=== PATIENT | female | born 1955 | race Caucasian/White ===

== ENCOUNTER 2017-06-17 08:53 | Day surgery (SDC) | payer OTHER ==
[2017-06-13 10:04] VITALS: BMI 34.7
[~2017-06-17 08:53] MED LIST: LACTATED RINGERS 1,000 ML IV SCH; LIDOCAINE 1% 20 ML VIAL (10MG/ML) FOR IV START INTRADERMA PRN
[2017-06-17 09:34] VITALS: RESP 16; TEMP 97.9
[2017-06-17 09:42] LABS: Glucose,Whole Blood 91 mg/dL (75-99)
[2017-06-17] MEDS ORDERED: PROPOFOL 10 MG/ML 20 ML VIAL IV ONE (10:20)
[2017-06-17 10:45] VITALS: BP 121/67; PULSE 83
--- NOTE | 2017-06-17 10:47 | P.PCN ---
Date of Procedure: 06/17/17 Preoperative Diagnosis: Postoperative Diagnosis: Procedure(s) Performed: Procedure: Esophagogastroduodenoscopy and biopsy. Preoperative diagnosis: Epigastric pain persistent despite therapy. Postoperative diagnosis: 1. Small sliding hiatal hernia with low-grade distal esophagitis. 2. Mild gastritis and duodenitis. 3. Biopsies obtained from the duodenum, antrum and esophagus. Preparation and sedation: Was provided by anesthesia. Brief clinical history: The patient is a 62-year-old female who I have evaluated in the office last month in regards to epigastric pain for the last 2 months or so. Prilosec does not always help. She gets the pain after eating a bite or 2. Fatty food could be a trigger. Nausea sets in during the day but no vomiting or weight loss. Her last colonoscopy with me was in 2015. No recent ultrasound or EGD. Procedure: With the patient on her left lateral decubitus position and after informed consent and adequate sedation, I passed the Olympus-GIF 160 video upper endoscope through the cricopharyngeus down the esophagus. GE junction was around 36 cm from the incisors and there was a small sliding hiatal hernia. The distal esophagus showed a linear erosion or 2 consistent with LA grade A distal esophagitis. There were no strictures or Moulton's esophagus. The endoscope was then passed into the stomach which was insufflated with air and inspected in detail including the retroflex view in the cardia. There was some mottling and erythema in the antrum but no ulcers or erosions. Pyloric channel did not show any ulcers. Duodenal bulb, post bulbar area and descending duodenum showed minimal erythema. I obtained biopsies from the duodenum, antrum and esophagus then the endoscope was withdrawn. The patient tolerated the procedure well. Plan: The patient was reassured. Will await biopsy results and will look for the ultrasound of the abdomen results and make additional recommendations. I will keep you updated on her progress. Implants: Indications for Procedure: Operative Findings: Description of Procedure:
[2017-06-17 11:00] LABS: Glucose,Whole Blood 88 mg/dL (75-99)
== END 2017-06-17 11:30 | disposition home or self-care (01) ==
LOC: ORWHC2ENDO 08:53
DX: K20.9 Esophagitis, unspecified (principal); K44.9 Diaphragmatic hernia without obstruction or gangrene; K29.70 Gastritis, unspecified, without bleeding; K29.80 Duodenitis without bleeding; I10 Essential (primary) hypertension; Z79.1 Long term (current) use of non-steroidal anti-inflammatories (NSAID); Z79.82 Long term (current) use of aspirin; Z79.899 Other long term (current) drug therapy
CPT/HCPCS: 88305; 88342; 43239; J2704

== ENCOUNTER → 2017-09-05 | Outpatient (CLI) | payer OTHER | END | disposition home or self-care (01) | LOC: LABPAT 17:31 | PROVIDERS: ATTEND Orthopaedic Surgery | DX: Z01.812 Encounter for preprocedural laboratory examination (principal) | CPT/HCPCS: 87070 ==

== ENCOUNTER → 2019-05-07 | Outpatient (CLI) | payer OTHER ==
[2019-05-07 17:14] LABS: Albumin 4.5 g/dL (3.80-4.90); Albumin/Globulin Ratio 2.5 (1.60-3.17); Anion Gap 4.8 mmol/L (4.00-12.00); Calcium 9.8 mg/dL (8.7-10.3); Carbon Dioxide 34.2 mmol/L (21.6-31.8); Globulin 1.8 g/dL (1.6-3.3); Total Bilirubin 0.8 mg/dL (0.2-1.2); Total Protein 6.3 g/dL (6.2-8.2)
[2019-05-07 19:25] LABS: Hemoglobin A1C 5.5 % (4.0-6.0)
== END | disposition home or self-care (01) ==
LOC: LABWHC1 10:57
PROVIDERS: ATTEND Internal Medicine Endocrinology, Diabetes & Metabolism
DX: E87.6 Hypokalemia (principal); I15.2 Hypertension secondary to endocrine disorders; E16.2 Hypoglycemia, unspecified
CPT/HCPCS: 36415; 80053; 82024; 82088; 82533; 83036; 84244

== ENCOUNTER → 2019-06-05 | Outpatient (CLI) | payer OTHER ==
--- NOTE | 2019-06-05 09:04 | CT ---
EXAMINATION TYPE: CT adrenal glands wo/w con DATE OF EXAM: 06/05/2019 COMPARISON: CT chest dated 1111 HISTORY: Hypertension and abnormal lab values CT DLP: 1475 mGycm CONTRAST: CT scan of the abdomen is performed and without and with IV Contrast, patient injected with 100 mL o f Isovue 370. FINDINGS: LUNG BASES-: No visible nodule. No infiltrate. LIVER/GB: As an exophytic hepatic lesion which impresses upon the lateral arm of the right adrenal gl and. This lesion is not felt to arise from the adrenal gland and measures 4.2 x 2.9 cm and demonstrat es complete fill in on delayed imaging. This lesion is felt to reflect a hemangioma. Additional heman giomas noted within the periphery of the right hepatic lobe posterior segment which measures 1.4 cm. Gallbladder is unremarkable. PANCREAS: No inflammation. No distinct mass. SPLEEN: No splenic enlargement. No lesion seen. ADRENALS: No nodule. No thickening. KIDNEYS/BLADDER: No hydronephrosis. No nephrolithiasis. No distinct renal mass. Urinary bladder g rossly unremarkable. BOWEL: Normal appendix. Normal bowel caliber. No inflammation. LYMPH NODES: No greater than 1cm abdominal or pelvic lymph nodes are appreciated. AORTA: No significant abnormality. OSSEOUS STRUCTURES: No significant abnormality is seen. OTHER: No significant additional abnormality is seen. IMPRESSION: 1. Exophytic hemangioma arising from the liver directly adjacent to the intrahepatic portion of the I VC. There is mass effect upon the lateral limb of the right adrenal gland. Additional hepatic hemangi jose enrique noted.
== END | disposition home or self-care (01) ==
LOC: RADCTMAIN 06:20
PROVIDERS: ATTEND Internal Medicine Endocrinology, Diabetes & Metabolism
DX: D18.09 Hemangioma of other sites (principal); E27.8 Other specified disorders of adrenal gland; E26.09 Other primary hyperaldosteronism
CPT/HCPCS: 74170; Q9967

== ENCOUNTER → 2019-06-09 | Outpatient (CLI) | payer OTHER ==
[2019-06-09 17:47] LABS: African American GFR (CKD) 91.6 (60.0-200.0); Albumin 4.5 g/dL (3.80-4.90); Albumin/Globulin Ratio 2.5 (1.60-3.17); Anion Gap 10.8 mmol/L (4.00-12.00); BUN/Creat Ratio 23.75 Ratio (12.00-20.00); Calcium 9.9 mg/dL (8.7-10.3); Carbon Dioxide 22.2 mmol/L (21.6-31.8); Globulin 1.8 g/dL (1.6-3.3); Potassium 4.4 mmol/L (3.5-5.5); Total Bilirubin 0.8 mg/dL (0.3-1.2); Total Protein 6.3 g/dL (6.2-8.2)
== END | disposition home or self-care (01) ==
LOC: LABWHC1 10:24
PROVIDERS: ATTEND Internal Medicine Endocrinology, Diabetes & Metabolism
DX: E26.09 Other primary hyperaldosteronism (principal)
CPT/HCPCS: 36415; 80053

== ENCOUNTER → 2019-06-20 | Outpatient (CLI) | payer OTHER ==
[2019-06-20 19:25] LABS: African American GFR (CKD) 79.4 (60.0-200.0); Albumin 4.2 g/dL (3.80-4.90); Albumin/Globulin Ratio 2.1 (1.60-3.17); Anion Gap 11.2 mmol/L (4.00-12.00); BUN/Creat Ratio 24.44 Ratio (12.00-20.00); Calcium 9.6 mg/dL (8.7-10.3); Carbon Dioxide 22.8 mmol/L (21.6-31.8); Potassium 4.1 mmol/L (3.5-5.5); Total Bilirubin 0.8 mg/dL (0.3-1.2); Total Protein 6.2 g/dL (6.2-8.2)
== END | disposition home or self-care (01) ==
LOC: LABWHC1 11:23
PROVIDERS: ATTEND Internal Medicine Endocrinology, Diabetes & Metabolism
DX: E26.09 Other primary hyperaldosteronism (principal)
CPT/HCPCS: 36415; 80053

== ENCOUNTER → 2019-07-25 | Outpatient (CLI) | payer OTHER ==
[2019-07-25 18:12] LABS: African American GFR (CKD) 91.6 (60.0-200.0); Albumin 4.6 g/dL (3.80-4.90); Albumin/Globulin Ratio 2.42 (1.60-3.17); Anion Gap 8.2 mmol/L (4.00-12.00); BUN/Creat Ratio 26.25 Ratio (12.00-20.00); Calcium 9.6 mg/dL (8.7-10.3); Carbon Dioxide 28.8 mmol/L (21.6-31.8); Globulin 1.9 g/dL (1.6-3.3); Potassium 4.5 mmol/L (3.5-5.5); Total Bilirubin 0.9 mg/dL (0.2-1.2); Total Protein 6.5 g/dL (6.2-8.2)
== END | disposition home or self-care (01) ==
LOC: LABWHC1 11:31
PROVIDERS: ATTEND Internal Medicine Endocrinology, Diabetes & Metabolism
DX: E26.09 Other primary hyperaldosteronism (principal)
CPT/HCPCS: 36415; 80053

== ENCOUNTER → 2020-07-14 | Outpatient (CLI) | payer OTHER | END | disposition home or self-care (01) | LOC: LABPAT 12:01 | PROVIDERS: ATTEND Orthopaedic Surgery | DX: Z01.812 Encounter for preprocedural laboratory examination (principal) | CPT/HCPCS: 87070 ==

== ENCOUNTER 2020-08-16 06:45 | Day surgery (SDC) | payer OTHER ==
[2020-08-11 11:10] VITALS: BMI 33.6
--- NOTE | 2020-08-15 10:35 | HP ---
HISTORY AND PHYSICAL CHIEF COMPLAINT: Right knee pain. 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 It has worsened recently. She has tried previous medications along with injections with partial temporary relief. She notes pain limits her normal function and activities. She also notes pain and giving way. PAST MEDICAL HISTORY: Significant for hypertension, hemochromatosis, arthritis, heart disease. PAST SURGICAL HISTORY: Significant for carpal tunnel release, hysterectomy, left total knee arthroplasty, cardiac catheterization. CURRENT MEDICATIONS: Aspirin, ibuprofen, loratadine, metoprolol, spironolactone, famotidine. She has allergies to SULFA, AMOXICILLIN, MOBIC, NORVASC and IMDUR. FAMILY HISTORY: Significant for renal disease and heart disease along with diabetes. SOCIAL HISTORY: Negative for current tobacco or alcohol use. 16 POINT REVIEW OF SYSTEMS: Otherwise reviewed and is noncontributory. PHYSICAL EXAMINATION: On examination, the patient is approximately 5 foot 1, 180 pounds of endomorphic habitus. HEENT: Exam is nonfocal. NECK: Supple. She has painless passive motion of the right hip. Straight leg raise is negative. Active motion right knee -10 to 110 degrees of flexion. She has a moderate effusion. She is tender about the medial and lateral joint line. Collaterals are stable, Silvestre is negative, Krzysztof's is equivocal. She has genu valgum alignment. Her distal neurovascular appears intact in the right lower extremity. X-rays of the right knee obtained in the office show severe lateral compartment narrowing along with chondrocalcinosis of the medial and lateral compartments. IMPRESSION: 1. Right knee severe lateral compartment osteoarthrosis. 2. Pseudogout right knee. 3. History of hemochromatosis. RECOMMENDATIONS: I talked to the patient at length regarding her condition along with treatment options. At this point, she remains quite symptomatic and limited because of pain related to her osteoarthrosis despite conservative treatment. After thorough discussion, she opts to proceed with surgery. We will plan to proceed with right total knee arthroplasty. We will institute DVT prophylaxis postoperatively. Risks and benefits were discussed at length in layman's terms. MMODL / IJN: [id number] /
[~2020-08-16 06:45] MED LIST changes: +ACETAMINOPHEN TAB 500 MG TAB PO ONE; +DEXAMETHASONE SOD PHOSPHATE 10 MG/ML 1 ML VIAL IV ONE; +HYDROmorphone 0.5 MG/0.5 ML SYRINGE IVP PRN; -LACTATED RINGERS 1,000 ML IV SCH; -LIDOCAINE 1% 20 ML VIAL (10MG/ML) FOR IV START INTRADERMA PRN; +MELOXICAM 7.5 MG TAB PO ONE; +MIDAZOLAM 2 MG/2 ML VIAL IV PRN; +ONDANSETRON 4 MG/2 ML VIAL IVP ONE; +ROPIVACAINE 246.25 MG, EPINEPHrine 0.5 MG, KETOROLAC 30 MG, cloNIDine HCL/PF 80 MCG, WA... MISCELLANE ONE; +SCOPOLAMINE 1.5MG/72HR PATCH TRANSDERM ONE; +TRANEXAMIC ACID 1,000 MG in SODIUM CHLORIDE 0.9% 100 ML IVPB ONE; +VANCOMYCIN 1,000 MG in SODIUM CHLORIDE 0.9% 250 ML IVPB ONE; +VANCOMYCIN 1,250 MG in SODIUM CHLORIDE 0.9% 250 ML IVPB ONE
[2020-08-16 07:16] LABS: Glucose,Whole Blood 96 mg/dL (75-99)
[2020-08-16] MEDS: LACTATED RINGERS 1,000 ML IV SCH (07:16)
[2020-08-16] MEDS ORDERED: MIDAZOLAM 2 MG/2 ML VIAL IVP ONE (07:27)
[2020-08-16] MEDS ORDERED: fentaNYL (PF) 50 MCG/ML 2 ML AMP IVP ONE (07:27)
[2020-08-16] MEDS ORDERED: TRANEXAMIC ACID 1,000 MG/10 ML VIAL ONE ×2 (07:46→07:47)
[2020-08-16] MEDS ORDERED: fentaNYL (PF) 50 MCG/ML 2 ML AMP ONE ×2 (07:46→07:47)
[2020-08-16] MEDS ORDERED: PROPOFOL 10 MG/ML 20 ML VIAL IV ONE ×2 (07:46→07:47)
[2020-08-16] MEDS ORDERED: SODIUM CHLORIDE 0.9% 100 ML BAG ONE ×2 (07:46→07:47)
[2020-08-16] MEDS ORDERED: MIDAZOLAM 2 MG/2 ML VIAL ONE ×2 (07:46→07:47)
[2020-08-16] MEDS ORDERED: ceFAZolin 3,000 MG in SODIUM CHLORIDE 0.9% IRRIGATIO 3,000 ML IRRIGATION ONE (08:26)
[2020-08-16] MEDS ORDERED: ROPIVACAINE 0.2%-NS ON-Q PUMP 1,090 MG, EMPTY PAIN BALL 1 EACH MISCELLANE PRN (09:31)
[2020-08-16] MEDS ORDERED: HYDROcodone/APAP 5-325MG 1 EACH TAB PO PRN (09:32)
[2020-08-16] MEDS ORDERED: ACETAMINOPHEN TAB 325 MG TAB PO PRN (09:32)
[2020-08-16] MEDS ORDERED: MAGNESIUM HYDROXIDE 2,400 MG/10 ML CUP PO PRN (09:32)
[2020-08-16] MEDS ORDERED: NALOXONE 0.4 MG/ML 1 ML VIAL IV PRN (09:32)
[2020-08-16] MEDS ORDERED: HYDROmorphone 1 MG/ML 1 ML SYRINGE IVP PRN (09:32)
[2020-08-16] MEDS ORDERED: HYDROmorphone 0.5 MG/0.5 ML SYRINGE IVP PRN (09:32)
[2020-08-16] MEDS ORDERED: ONDANSETRON 4 MG/2 ML VIAL IVP PRN (09:32)
--- NOTE | 2020-08-16 10:00 | P.OP ---
Date of Procedure: 08/16/20 Preoperative Diagnosis: Right knee severe tricompartmental osteoarthrosis Postoperative Diagnosis: Same Procedure(s) Performed: Right total notchplastycementedcruciate retaining Implants: [employer] size 4 narrow cemented femoral component, size 3 cemented tibial component, 9 mm articular surface, 29 mm cemented patellar component. This is a cruciate retaining implant. Anesthesia: regional, local, spinal Surgeon: Anthony Joshi Airline Captain #1: Charly Davies Estimated Blood Loss (ml): 50 Pathology: other (Bone fragments) Condition: stable Disposition: PACU Indications for Procedure: Patient is a 65-year-old female who presents with progressive right knee pain secondary to osteoarthrosis despite conservative measures. A discussion of the risks and benefits of operative intervention versus continued conservative measures was made with patient. She opted to proceed with surgery. Operative risks to include infection, neurovascular injury, development of blood clots, possible component loosening, possible component failure and need for subsequent procedures was discussed. Informed consent was obtained. Operative Findings: As below Description of Procedure: The patient was brought to the operating room, and after induction of spinal anesthesia the right lower extremity was prepped and draped in a normal fashion. The tourniquet was inflated to 270 mmHg. A longitudinal incision extending 3 finger breaths above the superior pole of the patella extending to the medial aspect the tibial tubercle was then made. The skin and subcutaneous tissues were divided sharply. Electrocautery was used for hemostasis. A medial parapatellar arthrotomy was then performed. The medial soft tissues to include the superficial and deep portions of the medial collateral ligament as well as the medial hamstring tendons were elevated subperiosteally. The proximal medial tibia osteophytes were carefully removed. The patella was everted. The knee was flexed. A portion of the retropatellar fat pad was excised sharply. The anterior cruciate ligament was sacrificed. A starting hole was made in the distal femur 1 cm anterior to the posterior cruciate origin. An intramedullary femoral guide was gently inserted planning on 5 valgus distal cut with 9 mm distal resection. The cutting block was pinned in place. The distal cut was then made. The posterior referencing sizing guide was utilized. 3 of external rotation was built into the system and verified off the trans- epicondylar axis and the posterior condyles. I felt size 4 narrow was most appropriate. The cutting block was pinned in place. The anterior, posterior, and chamfer cuts were then made. The bone fragments were removed. The trial size 4 narrow femoral component was then placed and was fully seated. There was good anterior to posterior and medial to lateral fit. The distal peg holes were then drilled. The trial component was then removed. Attention was then paid towards preparing the proximal tibia. An extra medullary guide was utilized in line with the tibial shaft and second metatarsal distally. A 3 posterior slope was planned. I planned on 2 mm resection from the medial compartment. The cutting block was pinned in place. The proximal tibial cut was then made. The bone was removed in one fragment. The remnants of the medial and lateral menisci were excised the capsule junction with electrocautery. The tibia sized most appropriately at size 3. The posterior osteophytes off the distal femur were carefully removed with a curved osteotome. The trial tibial and femoral components were placed along with a 9 millimeters articular surface. I was able to obtain full flexion and extension with good stability with varus and valgus stress. After several flexion and extension cycles, the tibial rotation was marked with electrocautery in line with the medial one third of the tibial tubercle. Attention was then paid towards preparing the patella. A patella reamer was utilized taking this down to 14 mm of bone stock. A good flush cut was made. The patella sized most appropriately at 29 millimeters. The peg holes were then drilled. The trial component was placed. The knee was taken through a range of motion. I had good patellofemoral tracking with no hands technique. The trial components were then removed. The tibia was prepared in the appropriate rotation with appropriate drill and keel punch. The flexion and extension gaps were checked and felt to be symmetric. The posterior soft tissues were injected with ropivacaine. The bony surfaces were prepared with pulsatile lavage and dried. The deep tibial component was then cemented in place and was fully seated. Excess cement was removed. The femoral component was cemented in place and was fully seated. Again excess cement was removed. The trial 9 millimeters surface was then inserted in the knee was put in full extension. The patella component was cemented in place. After the cement had sufficiently hardened, the knee was again taken through a range of motion. Again there was good stability in flexion and extension with varus and valgus stress. The trial articular surface was then removed. The final articular surface was placed and was impacted. Care was taken to avoid any soft tissue interposition. Pulsatile lavage was again utilized. The tourniquet was deflated with approximately 60 minutes total tourniquet time. There was minimal drainage therefore a deep drain was not placed. The medial parapatellar arthrotomy was then closed with #2 Ethibond suture. The subcutaneous tissues were reapproximated interrupted 2-0 Vicryl sutures. The skin was reapproximated with 3-0 subarticular strata fix suture. Skin tape and adhesive was applied. A sterile dressing was applied. The patient was then awoken from sedation and transferred to recovery room in good condition. Blood loss was estimated at 50 milliliters. No complications were incurred. Sponge and needle counts were correct at the end the case. Florencio JIMENEZ assisted during the major components this case to include exposure, bone resection, and implantation.
--- NOTE | 2020-08-16 10:59 | P.ANPRN ---
Procedure Note - Anesthesia - Nerve Block Performed Right Adductor Canal Infusion Time Out Performed: Yes Date of Procedure: 08/16/20 Procedure Start Time: 07:30 Procedure Stop Time: 07:46 Location of Patient: PreOp Indication: Acute Post-Operative Pain, Dx/Pain Location, Requested by Surgeon Specifically requested for management of pain by : Anthony Joshi Sedation Type: Sedate with meaningful contact maintained Preparation: Sterile Prep, Sterile Dressing Position: Supine Catheter Depth at Skin (cm): 6 Catheter: Indwelling Needle Types: On-Q Needle Gauge: 21 Ultrasound used to visualize needle placement: Yes Ultrasound used to observe medication spread: Yes Injectate: 0.5% Ropivacaine (see comment for volume) (0.5% 15cc Ropivacaine 4mg Dexamethasone) Blood Aspirated: No Pain Paresthesia on Injection Noted: No Resistance on Injection: Normal Image Stored and Saved: Yes Events: Uneventful and Well Tolerated
[2020-08-16] MEDS ORDERED: diazePAM 5 MG TAB PO ONE (11:41)
--- NOTE | 2020-08-16 11:54 | XR ---
EXAMINATION TYPE: XR knee limited RT DATE OF EXAM: 08/16/2020 CLINICAL HISTORY: Right knee pain and arthritis status post total knee replacement. TECHNIQUE: Portable AP and crosstable lateral views of the right knee are obtained immediately posto peratively. COMPARISON: None FINDINGS: Metallic hardware from total right knee arthroplasty is seen and appears satisfactory in a lignment and position. There is evidence of recent surgery with diffuse subcutaneous gas and cutaneo us irregularity. There is no unexpected radiopaque foreign body. IMPRESSION: METALLIC HARDWARE FROM TOTAL RIGHT KNEE ARTHROPLASTY IS SATISFACTORY IN ALIGNMENT.
--- NOTE | 2020-08-16 11:59 | XR ---
EXAMINATION TYPE: XR foot complete LT DATE OF EXAM: 08/16/2020 CLINICAL HISTORY: Left toe fracture. Pain of left foot. TECHNIQUE: Frontal, oblique, and portable crosstable lateral images of the left foot are obtained. COMPARISON: None FINDINGS: There is no acute fracture/dislocation evident in the left foot. The joint spaces in the left foot appear within normal limits. The overlying soft tissue appears unremarkable. IMPRESSION: There is no acute fracture or dislocation in the left foot.
[2020-08-16] MEDS ORDERED: CYCLOBENZAPRINE 10 MG TAB PO PRN (12:28)
[2020-08-16] MEDS ORDERED: FAMOTIDINE 20 MG TAB PO PRN (12:28)
[2020-08-16] MEDS ORDERED: MAGNESIUM OXIDE 400 MG TAB PO PRN (12:28)
[2020-08-16] MEDS: HYDROcodone/APAP 5-325MG 1 EACH TAB PO PRN (17:42)
--- NOTE | 2020-08-16 17:51 | P.CONS ---
History of Present Illness - Reason for Consult Consult date: 08/16/20 Requesting physician: Anthony Joshi - Chief Complaint Right knee surgery - History of Present Illness Consultation: This is a pleasant 65 old patient with chronic stable medical conditions including GERD, hypertension, prostatitis, lichen planus of the mouth, obstructive sleep apnea uses CPAP and hemochromatosis. She's had a cardiac catheterization at [facility] and has told she's had a chronically occluded vessel. And has been medically managed. Patient undergoing right knee surgery. Postprocedure some discomfort. No nausea vomiting. No chest pain or shortness breath. Review of systems: GEN.: Tired EYES: None HEENT: None NECK: None RESPIRATORY: None CARDIOVASCULAR: None GASTROINTESTINAL: GERD GENITOURINARY: None MUSCULOSKELETAL: Joint pains LYMPHATICS: None HEMATOLOGICAL: None PSYCHIATRY: None NEUROLOGICAL: None Past medical history to include: GERD, hypertension, prostatitis, lichen planus of the mouth, obstructive SLEEP apnea, hemochromatosis Social history: Does not smoke or drink alcohol. . 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 EYES: Pupils equal. Conjunctiva normal. HEENT: External appearance of nose and ears normal, oral cavity grossly normal. NECK: JVD not raised; masses not palpable. HEART: First and second heart sounds are normal; no edema. LUNGS: Respiratory rate normal; clear to auscultation. ABDOMEN: Soft, nontender, liver spleen not palpable, no masses palpable. PSYCH: Alert and oriented x3; mood and affect normal MUSCULAR skeletal: Dressing over the right knee with Mynor wrap. NEUROLOGICAL: Cranial nerves grossly intact; no facial asymmetry, power and sensation grossly intact. LYMPHATICS: No lymph nodes palpable in the axilla and neck INVESTIGATIONS, reviewed in the clinical context: Potassium 4.5 creatinine 0.8 Assessment: -Right knee severe tricompartmental osteoarthritis with right total knee arthroplasty -GERD -Essential hypertension -Lichen planus of the mouth -Obstructive sleep apnea uses CPAP -Chronic hemochromatosis Plan: Home medications resumed. Patient getting IV fluids, analgesics, and on 0 to for DVT prophylaxis per orthopedics. Care was discussed with the patient question answered Thank you Dr. Joshi Past Medical History Past Medical History: GERD/Reflux, Hypertension, Osteoarthritis (OA), Skin Disorder, Sleep Apnea/CPAP/BIPAP Additional Past Medical History / Comment(s): HX TACHYCARDIA, LICHENPLANUS (MOUTH), HYPOGLYCEMIA, USES C-PAP MACHINE, STATES SHE SEES DR PERRIN FOR ADRENAL GLANDS., HEMOCHROMATOSIS-STATES SHE CLOTS EASILY., PAIN RIGHT KNEE-USINE HINGE BRACE AT WORK, STATES MUSCLE SPASMS AFTER TOTAL LEFT KNEE. History of Any Multi-Drug Resistant Organisms: None Reported Past Surgical History: Section, Heart Catheterization, Hysterectomy, Joint Replacement, Orthopedic Surgery Additional Past Surgical History / Comment(s): BENIGN TUMOR RT ANKLE, TOTAL LEFT KNEE, LEFT KNEE ARTHROSCOPY. REPAIR OF RT LITTLE FINGER NEAR AMPUTATION. COLONOSCOPY. BILAT CTR, HEART CATH AUG 2018 ([facility]- DR VILLANUEVA) Past Anesthesia/Blood Transfusion Reactions: No Reported Reaction, Family History of Problems w/ Anesthesia Additional Past Anesthesia/Blood Transfusion Reaction / Comm: daughter hysteri anand and confused. Past Psychological History: No Psychological Hx Reported Smoking Status: Never smoker Past Alcohol Use History: None Reported Past Drug Use History: None Reported - Past Family History Mother Family Medical History: Fibromyalgia Additional Family Medical History / Comment(s): arthritis Father Family Medical History: Cancer, Diabetes Mellitus, Hypertension, Renal Disease Additional Family Medical History / Comment(s): heart problems, mult [place] Medications and Allergies Home Medications Medication Instructions Recorded Confirmed Type Calcium/Magnesium/Zinc 1 tab PO DAILY 06/13/17 08/11/20 History [Lnuiedv-Ybrpmxgny-Gful Tablet] Ergocalciferol (Vitamin D2) 50,000 unit PO WE 06/13/17 08/11/20 History [Vitamin D2] Loratadine [Claritin] 10 mg PO DAILY 06/13/17 08/11/20 History Cyclobenzaprine [Flexeril] 10 mg PO HS PRN 09/19/17 08/11/20 History Aspirin 325 mg PO DAILY 08/11/20 08/11/20 History Dexamethasone Oral [Decadron Oral] 10 mg PO Q8HR PRN 08/11/20 08/11/20 History Famotidine [Pepcid] 20 mg PO BID PRN 08/11/20 08/11/20 History Ibuprofen [Motrin] 600 mg PO Q8HR PRN 08/11/20 08/11/20 History Magnesium 250 mg PO HS PRN 08/11/20 08/11/20 History Metoprolol Succinate [Toprol XL] 25 mg PO DAILY 08/11/20 08/11/20 History Spironolactone 75 mg PO DAILY 08/11/20 08/11/20 History Allergies Allergy/AdvReac Type Severity Reaction Status Date / Time amlodipine [From Norvas] Allergy Severe fluid Verified 08/16/20 07:01 retention, swelling 5 # fluid gain nickel Allergy Unknown 2 Verified 08/16/20 07:01 daughters have nickel allergy -does not want. amoxicillin Allergy Rash/Hives Verified 08/16/20 07:01 cigarette smoke Allergy migraines Verified 08/16/20 07:01 perfume Allergy migraines Verified 08/16/20 07:01 pollen extracts Allergy alg testing Verified 08/16/20 07:01 shellfish derived [Shellfish] Allergy alg testing Verified 08/16/20 07:01 soy Allergy bloating/alg Verified 08/16/20 07:01 testing Sulfa (Sulfonamide Allergy Rash/Hives Verified 08/16/20 07:01 Antibiotics) wheat Allergy bloating/alg Verified 08/16/20 07:01 testing isosorbide [From Imdur] AdvReac Severe MIGRAINE Verified 08/16/20 07:01 nitroglycerin AdvReac Severe MIGRAINE Verified 08/16/20 07:01 WITH NITRO PASTE meloxicam [From Mobic] AdvReac Abdominal Verified 08/16/20 07:01 Pain Physical Exam Vitals: Vital Signs Temp Pulse Pulse Resp BP Pulse Ox 08/16/20 12:29 97.8 F 86 16 105/68 97 08/16/20 11:55 78 16 123/74 97 08/16/20 11:40 77 16 125/68 96 08/16/20 11:25 88 16 128/76 97 08/16/20 11:10 94 16 131/63 96 08/16/20 10:55 89 16 116/59 94 L 08/16/20 10:38 86 16 126/62 94 L 08/16/20 10:23 85 16 131/67 97 08/16/20 10:08 82 16 111/57 100 08/16/20 09:53 97.4 F L 80 16 109/59 98 08/16/20 07:39 72 16 104/60 98 08/16/20 06:59 96.9 F L 102 H 16 123/67 98 Intake and Output 08/16/20 08/16/20 08/16/20 06:59 14:59 22:59 Intake Total 1201 Output Total 50 Balance 1151 Intake: IV 1201 Output: Estimated Blood Loss 50 Other: # Voids 2 Weight 186.1 kg 84.59 kg
[2020-08-16] MEDS ORDERED: SENNOSIDES-DOCUSATE SODIUM 1 EACH TAB PO SCH (21:00)
[2020-08-17] MEDS: HYDROcodone/APAP 5-325MG 1 EACH TAB PO PRN ×3 (02:18→13:50)
[2020-08-17 05:55] LABS: Basophils % (A) 0 %; Eosinophils % (A) 0 %; HCT 41.5 % (34.0-46.0); HGB 13.9 gm/dL (11.4-16.0); Lymphocytes % (A) 5 %; MCH 32.4 pg (25.0-35.0); MCHC 33.4 g/dL (31.0-37.0); MCV 96.9 fL (80.0-100.0); Mean Platelet Volume 6.9; Monocytes % (A) 5 %; Neutrophils # (A) 16.8 k/uL (1.3-7.7); Neutrophils % (A) 89 %; Platelet Count 250 k/uL (150-450); RBC 4.28 m/uL (3.80-5.40); WBC 18.9 k/uL (3.8-10.6)
[2020-08-17 07:07] VITALS: PULSE 78; RESP 18; TEMP 97.8
--- NOTE | 2020-08-17 07:13 | P.PN ---
Progress Note - Text Progress Note Date: 08/17/20 Patient seen and examined at bedside POD #1 from right total knee arthroplasty. Patient received an adductor canal catheter for post operative pain management prior to surgery. Today patient reports 2/10 pain with acceptable pain. Patient report stiffness and muscle tightness above the knee. Patient has been ambulating and able to use the restroom. No motor or sensory deficits. No other problems reported. Catheter site is clean and intact. All questions answered.
[2020-08-17] MEDS: LACTATED RINGERS 1,000 ML IV SCH (07:52)
[2020-08-17 08:22] VITALS: BP 127/62
[2020-08-17] MEDS ORDERED: RIVAROXABAN 10 MG TAB PO SCH (09:00)
[2020-08-17] MEDS ORDERED: LORATADINE 10 MG TAB PO SCH (09:00)
[2020-08-17] MEDS ORDERED: SPIRONOLACTONE 25 MG TAB PO SCH (09:00)
[2020-08-17] MEDS ORDERED: METOPROLOL SUCCINATE (ER) 25 MG TAB.ER.24H PO SCH (09:00)
--- NOTE | 2020-08-17 10:58 | P.PN ---
Subjective Progress Note Date: 08/17/20 Principal diagnosis: Status post right total knee arthroplasty Patient is in very well today, she done well with therapy. Her pain is well- controlled. She denies chest pain or shortness of breath. Objective - Vital Signs Vital signs: Vital Signs Temp 97.8 F 08/17/20 07:00 Pulse 78 08/17/20 07:00 Resp 18 08/17/20 07:00 BP 127/62 08/17/20 08:22 Pulse Ox 95 08/17/20 07:00 Intake & Output 08/16/20 08/17/20 08/17/20 18:59 06:59 18:59 Intake Total 1201 0 Output Total 50 Balance 1151 0 Weight 84.59 kg Intake: IV 1201 Intake, IV Titration 0 Amount Lactated Ringers 1,000 ml 0 @ 60 mls/hr IV .[id number] [facility] Rx#:[id number] Output: Estimated Blood Loss 50 Other: Voiding Method Toilet Toilet # Voids 2 1 - Exam Right lower extremity: Incision is clean, dry, and intact. The exofin fusion tape is in good condition. There is minimal soft tissue swelling and ecchymosis surrounding the medial and lateral aspects of the incision. Calf is soft, no tenderness with p alpation. Plantar flexion, dorsiflexion, EHL, FHL are intact. Sensory exam to light touch throughout the extremity is intact, dorsal pedis pulses 2+. - Labs CBC & Chem 7: 08/17/20 05:25 Labs: Abnormal Lab Results - Last 24 Hours (Table) 08/17/20 Range/Units 05:25 WBC 18.9 H (3.8-10.6) k/uL Neutrophils # 16.8 H (1.3-7.7) k/uL Assessment and Plan Assessment: Status post right total knee arthroplasty Plan: pain control, plan for discharge home on oral medication GI and DVT prophylaxis, Eliquis 2.5mg bid for 2 weeks Wound care instructions discussed Home therapy and nursing after discharge medical recommendations Discharged home today Time with Patient: Less than 30
--- NOTE | 2020-08-17 11:02 | P.DS ---
Providers Date of admission: 08/16/2020 Expected date of discharge: 08/17/20 Attending physician: Anthony Joshi Primary care physician: Nancy Colunga Hospital Course: Date of admission: 08/16/2020 Date of discharge: 08/17/2020 Admission diagnosis: Status post right total knee arthroplasty Discharge diagnosis: Same Attending physician: Dr. Joshi Surgical procedures: Right total knee arthroplasty Brief history: Patient is a 65-year-old female with a history of primary right knee osteoarthritis. At this point patient has failed conservative treatment measures and has opted to proceed with a elective right total knee arthroplasty. Hospital course: Details of patient's surgery can be found in operative report. Patient tolerated the procedure well and was subsequently transported to orthopedic floor. Patient's orthopeidc and medical care was provided daily. Patient had daily laboratory tests performed for evaluation of overall blood counts. Patient had daily physical therapy to include strengthening range of motion as well as education with walker ambulation. Patient was treated with Xarelto for their postoperative DVT prophylaxis during their inpatient stay. Patient was noted to have a relatively uneventful postoperative course. Patient reported satisfactory pain control with oral pain medications by postoperative day 0. Patient showed satisfactory progress with physical therapy. Patient moved steadily through the program and had no difficulty meeting the goals by postoperative day 1. Given patient's otherwise satisfactory course and having met physical therapy goals, plan is to discharge patient home on postoperative day 1. Discharge condition/disposition: Patient will be discharged home in stable condition. Discharge medications: Instructions are given on resumption of patient's normal daily medications per primary care recommendation, in addition patient will be prescribed [place] 7.5 mg/325 mg, Colace 100 mg, Eliquis 2.5 mg. Discharge instructions: 1. Wound care and infection precautions, keep incision dry and covered while showering, no lotions, creams, moisturizers. No soaking, tubs, pools, hottubs. Do not scrub over the incision. 2. Weight-bear as tolerated with walker / cane until follow-up. 3. Ice and elevate when necessary. Do not exceed 20 minutes per hour with ice pack. 4. Utilize compression sleeve until seen at first follow up appointment. 5. Visiting nursing care. 6. Home physical therapy including home CPM. 7. Pain meds and anticoagulants per prescription. 8. Pain medication has potential to cause constipation. Increase oral fluid and fiber intake. Contact primary care provider if you have not had a bowel movement within 48 hours after discharge 9. No anti-inflammatory medication until discussed at first post operative visit, this including Motrin, Aleve, Mobic, Diclofenac. 10. Follow up in office at 2 weeks postop with Florencio Davies PA-C 11. Follow up with your primary care doctor 7-10 days after discharge. 12. Contact [facility] with any questions, . Procedures: Right total knee arthroplasty Patient Condition at Discharge: Good Plan - Discharge Summary Discharge Rx Participant: No New Discharge Prescriptions: New Sennosides-Docusate Sodium [Senokot-S] 2 each PO HS tab Apixaban [Eliquis] 2.5 mg PO BID #60 tab HYDROcodone/APAP 7.5-325MG [Far Hills 7.5] 1 - 2 each PO Q6HR PRN #40 tab PRN Reason: Pain Continue Loratadine [Claritin] 10 mg PO DAILY Ergocalciferol (Vitamin D2) [Vitamin D2] 50,000 unit PO WE Calcium/Magnesium/Zinc [Lfbgmuz-Jmrqcdwbl-Rhiw Tablet] 1 tab PO DAILY Cyclobenzaprine [Flexeril] 10 mg PO HS PRN PRN Reason: Muscle Pain Dexamethasone Oral [Decadron Oral] 10 mg PO Q8HR PRN PRN Reason: LICHEN PLANUS Famotidine [Pepcid] 20 mg PO BID PRN PRN Reason: Heartburn Metoprolol Succinate [Toprol XL] 25 mg PO DAILY Aspirin 325 mg PO DAILY Spironolactone 75 mg PO DAILY Magnesium 250 mg PO HS PRN PRN Reason: LEG CRAMPS No Action Ibuprofen [Motrin] 600 mg PO Q8HR PRN PRN Reason: Pain Discharge Medication List Calcium/Magnesium/Zinc [Xboxynp-Olvuhhomo-Vfaa Tablet] 1 tab PO DAILY 06/13/17 [History] Ergocalciferol (Vitamin D2) [Vitamin D2] 50,000 unit PO WE 06/13/17 [History] Loratadine [Claritin] 10 mg PO DAILY 06/13/17 [History] Cyclobenzaprine [Flexeril] 10 mg PO HS PRN 09/19/17 [History] Aspirin 325 mg PO DAILY 08/11/20 [History] Dexamethasone Oral [Decadron Oral] 10 mg PO Q8HR PRN 08/11/20 [History] Famotidine [Pepcid] 20 mg PO BID PRN 08/11/20 [History] Ibuprofen [Motrin] 600 mg PO Q8HR PRN 08/11/20 [History] Magnesium 250 mg PO HS PRN 08/11/20 [History] Metoprolol Succinate [Toprol XL] 25 mg PO DAILY 08/11/20 [History] Spironolactone 75 mg PO DAILY 08/11/20 [History] Apixaban [Eliquis] 2.5 mg PO BID #60 tab 08/17/20 [Rx] HYDROcodone/APAP 7.5-325MG [[place] Hills 7.5] 1 - 2 each PO Q6HR PRN #40 tab 08/17/20 [Rx] Sennosides-Docusate Sodium [Senokot-S] 2 each PO HS tab 08/17/20 [Rx] Follow up Appointment(s)/Referral(s): [facility] [NON-STAFF] - As Needed Charly Davies PAC [PHYSICIAN ANIMAL NUTRITIONIST] - 08/31/20 1:40 pm Nancy Colunga MD [Primary Care Provider] - 08/26/20 8:45 am Activity/Diet/Wound Care/Special Instructions: Orthopedic Discharge Instructions: 1. Wound care and infection precautions, keep incision dry and covered while showering, no lotions, creams, moisturizers. No soaking, pools, hot tubs. Do not scrub over incision. 2. Weight-bear as tolerated with walker / cane until follow-up. 3. Ice and elevate when necessary. Do not exceed 20 minutes per hour with ice pack. 4. Utilize compression sleeve until seen at first follow up appointment. 5. Pain meds and anticoagulants per prescription. 6. Pain medication has potential to cause constipation. Increase oral fluid and fiber intake. Contact primary care provider if you have not had a bowel movement within 48 hours after discharge. 7. No anti-inflammatory medication until discussed at first post operative visit, this including Motrin, Aleve, Mobic, Diclofenac. 8. Follow up in office at 2 weeks postop with Florencio Davies PA-C 9. Follow up with your primary care doctor 7-10 days after discharge. 10. Contact [facility] with any questions, . Discharge Disposition: HOME WITH HOME HEALTH SERVICES
--- NOTE | 2020-08-17 23:40 | P.PN ---
Progress Note - Text Progress Note Date: 08/17/20 - Chief Complaint Right knee surgery Consultation: This is a pleasant 65 old patient with chronic stable medical conditions including GERD, hypertension, prostatitis, lichen planus of the mouth, obstructive sleep apnea uses CPAP and hemochromatosis. She's had a cardiac catheterization at [facility] in [place] and has told she's had a chronically occluded vessel. And has been medically managed. underwent right knee surgery. Today-feeling much better. Pain control. No nausea vomiting. Did tolerate her breakfast. Did work with therapy. Review of systems: Was done for constitutional, cardiovascular, GI, pulmonary. relevant finding as above Current medications reviewed in today's electronic records. Physical examination: VITAL SIGNS: 97.8, 78, 18, 1 27 x 62, 95% room air GENERAL: sitting up, comfortable EYES: Pupils equal. Conjunctiva normal. HEENT: External appearance of nose and ears normal, oral cavity grossly normal. NECK: JVD not raised; masses not palpable. HEART: First and second heart sounds are normal; no edema. LUNGS: Respiratory rate normal; clear to auscultation. ABDOMEN: Soft, nontender, liver spleen not palpable, no masses palpable. PSYCH: Alert and oriented x3; mood and affect normal MUSCULAR skeletal: Dressing over the right knee with Mynor wrap. INVESTIGATIONS, reviewed in the clinical context: White count 18.9 hemoglobin 13.9 This testing Potassium 4.5 creatinine 0.8 Assessment: -Right knee severe tricompartmental osteoarthritis with right total knee arthroplasty -GERD -Essential hypertension -Lichen planus of the mouth -Obstructive sleep apnea uses CPAP -Chronic hemochromatosis -Leukocytosis likely reactive from surgery. No clinical evidence of infection Plan: stable. Continue current medication she'll plan. Discharged to follow-up with the family doctor. Thank you Dr. Joshi
== END 2020-08-17 14:15 | disposition home health service (06) ==
LOC: OR 06:45 → 4SSUR 09:29 → OR 08-17 14:15
PROVIDERS: ATTEND Orthopaedic Surgery
DX: M17.11 Unilateral primary osteoarthritis, right knee (principal); M11.261 Other chondrocalcinosis, right knee; M25.761 Osteophyte, right knee; E83.110 Hereditary hemochromatosis; D72.829 Elevated white blood cell count, unspecified; I11.9 Hypertensive heart disease without heart failure; R00.2 Palpitations; I20.0 Unstable angina; K44.9 Diaphragmatic hernia without obstruction or gangrene; E16.2 Hypoglycemia, unspecified; E66.9 Obesity, unspecified; Z68.34 Body mass index [BMI] 34.0-34.9, adult; G43.909 Migraine, unspecified, not intractable, without status migrainosus; K21.9 Gastro-esophageal reflux disease without esophagitis; L30.9 Dermatitis, unspecified; Z96.652 Presence of left artificial knee joint; L43.9 Lichen planus, unspecified; G47.33 Obstructive sleep apnea (adult) (pediatric); Z99.89 Dependence on other enabling machines and devices; Z97.2 Presence of dental prosthetic device (complete) (partial); Z90.710 Acquired absence of both cervix and uterus; Z83.3 Family history of diabetes mellitus; Z84.1 Family history of disorders of kidney and ureter; Z82.49 Family history of ischemic heart disease and other diseases of the circulatory system; Z82.69 Family history of other diseases of the musculoskeletal system and connective tissue; Z79.82 Long term (current) use of aspirin; Z98.890 Other specified postprocedural states; Z79.899 Other long term (current) drug therapy; Z88.6 Allergy status to analgesic agent; Z88.0 Allergy status to penicillin; Z88.2 Allergy status to sulfonamides; Z88.8 Allergy status to other drugs, medicaments and biological substances; Z91.013 Allergy to seafood; Z91.018 Allergy to other foods; Z91.048 Other nonmedicinal substance allergy status
CPT/HCPCS: 27447; 97110; 97161; 64448; 76942; 85025; 88300; 73560; 73630; C1713; C1776; J2250; J0171; J3370; J1100; J2405; J0690; J3010; J1885; J2795 ×2; J0735; J1170

== ENCOUNTER → 2020-09-06 | Day surgery (SDC) | payer OTHER ==
--- NOTE | 2020-09-05 14:39 | HP ---
HISTORY AND PHYSICAL CHIEF COMPLAINT: Right knee incision opening. HISTORY OF PRESENT ILLNESS: Patient is a 65-year-old female who presents after undergoing a right total knee arthroplasty on 08/16/2020, who last week had her midportion of the incision opened up after doing therapy. She notes some bloody drainage. That has been persisting. I did start her on oral antibiotics. She denies fevers or chills. Otherwise, she was progressing well. PAST MEDICAL HISTORY: Significant for hypertension, hemochromatosis and lichenplanus. PAST SURGICAL HISTORY: Carpal tunnel release, hysterectomy, and right total knee arthroplasty. CURRENT MEDICATIONS: Keflex, hydrocodone, famotidine, cyclobenzaprine, metoprolol, spironolactone, ibuprofen, and aspirin. ALLERGIES: SHE HAS ALLERGIES TO SULFA, AMOXICILLIN, MOBIC, NORVASC AND IMDUR. FAMILY HISTORY: Significant for renal disease, heart disease and cancer. SOCIAL HISTORY: Negative for current tobacco or alcohol use. 16 POINT REVIEW OF SYSTEMS: Otherwise reviewed and is noncontributory. PHYSICAL EXAMINATION: On examination, the patient is approximately 5 foot, 2 inches, 186 pounds of endomorphic habitus. HEENT exam is nonfocal. NECK: Supple. She has painless passive motion of the right hip. Straight leg raise is negative. Active motion right knee -8 to 100 degrees of flexion. She has a 1 x 1/2 cm dehiscence about the midportion of the incision. There is no warmth or erythema. She has mild bloody drainage. She has no real knee effusion. She has no joint line tenderness. Her knee is stable to varus and valgus stress. Homans are negative right lower extremity. Her distal neurovascular appears intact right lower extremity. IMPRESSION: Status post right total knee arthroplasty with wound dehiscence. RECOMMENDATIONS: I talked to the patient at length regarding her condition and treatment options. At this point, we will plan to proceed with irrigation and debridement of her wound dehiscence with closure. We will likely perform that as an outpatient procedure. Risks and benefits were discussed at length in layman's terms. MMODL / IJN: [id number] /
[2020-09-05 14:58] VITALS: BMI 34.0
[~2020-09-06] MED LIST changes: -ACETAMINOPHEN TAB 500 MG TAB PO ONE; +HYDROcodone/APAP 7.5-325MG 1 EACH TAB ONE; +HYDROcodone/APAP 7.5-325MG 1 EACH TAB PO ONE; -HYDROmorphone 0.5 MG/0.5 ML SYRINGE IVP PRN; +KETOROLAC 15 MG/ML 1 ML VIAL ONE; +LACTATED RINGERS 1,000 ML IV SCH; +LIDOCAINE 1% INJ 10MG/ML (20 ML MDV) ONE; -MELOXICAM 7.5 MG TAB PO ONE; +MIDAZOLAM 2 MG/2 ML VIAL ONE; +PROPOFOL 10 MG/ML 20 ML VIAL IV ONE; -ROPIVACAINE 246.25 MG, EPINEPHrine 0.5 MG, KETOROLAC 30 MG, cloNIDine HCL/PF 80 MCG, WA... MISCELLANE ONE; -TRANEXAMIC ACID 1,000 MG in SODIUM CHLORIDE 0.9% 100 ML IVPB ONE; -VANCOMYCIN 1,000 MG in SODIUM CHLORIDE 0.9% 250 ML IVPB ONE; -VANCOMYCIN 1,250 MG in SODIUM CHLORIDE 0.9% 250 ML IVPB ONE; +ceFAZolin 1,000 MG in SODIUM CHLORIDE 0.9% 1,000 ML IRRIGATION ONE; +fentaNYL (PF) 50 MCG/ML 2 ML AMP ONE
[2020-09-06 09:18] LABS: Glucose,Whole Blood 92 mg/dL (75-99)
[2020-09-06 09:21] LABS: HCT 48.8 % (34.0-46.0); HGB 16.2 gm/dL (11.4-16.0); MCH 33.2 pg (25.0-35.0); MCHC 33.2 g/dL (31.0-37.0); MCV 99.9 fL (80.0-100.0); Mean Platelet Volume 6.8; Platelet Count 384 k/uL (150-450); RBC 4.88 m/uL (3.80-5.40); RDW 11.9 % (11.5-15.5); WBC 5.9 k/uL (3.8-10.6)
[2020-09-06 09:36] LABS: Potassium 4.9 mmol/L (3.5-5.1)
--- NOTE | 2020-09-06 09:58 | P.OP ---
Date of Procedure: 09/06/20 Preoperative Diagnosis: Right total knee arthroplasty with wound dehiscence Postoperative Diagnosis: Same Procedure(s) Performed: Irrigation and debridement right knee wound with closure Anesthesia: MAC Surgeon: Anthony Joshi Estimated Blood Loss (ml): 5 Pathology: none sent Condition: stable Disposition: PACU Indications for Procedure: The patient's a 65-year-old female who recently underwent a right total knee arthroplasty who and her postoperative phase with progressive rehabilitation sustained dehiscence of the central portion of the wound. This extended approximately 2 cm. She had no clinical evidence of infection. A discussion of the risks and benefits of revision was made with patient. She opted to proceed. Risks to include infection, recurrence, and possible need for subsequent procedures was discussed. Informed consent was obtained. Operative Findings: As below Description of Procedure: The patient was brought to the operating room, and after induction of mask anesthesia the right lower extremity was prepped and draped in normal fashion. The wound was inspected. This extended approximately 2 cm in the central portion. There was no purulence or erythema. This extended down to the level of the prepatellar tissue. Copious irrigation was performed. The wound edges were sharply debrided with a scalpel down to the prepatellar bursal tissue. The subcutaneous tissues were reapproximated interrupted 2-0 Vicryl sutures. The skin was reapproximated with 3-0 simple nylon sutures. A sterile dressing was applied. The patient was awoken from anesthesia. She was then transferred to recovery room in good condition. Blood loss was estimated 5 mL. No complications were incurred. Sponge and needle counts were correct at the end of the case.
[2020-09-06 10:07] VITALS: TEMP 97.9
[2020-09-06] MEDS: HYDROmorphone 0.5 MG/0.5 ML SYRINGE IVP PRN ×2 (10:07→10:12)
[2020-09-06 11:05] VITALS: RESP 16
[2020-09-06 11:55] VITALS: BP 145/70; PULSE 72
== END | disposition home or self-care (01) ==
LOC: OR 08:35
PROVIDERS: ATTEND Orthopaedic Surgery
DX: T81.31XA Disruption of external operation (surgical) wound, not elsewhere classified, initial encounter (principal); K21.9 Gastro-esophageal reflux disease without esophagitis; I10 Essential (primary) hypertension; E83.119 Hemochromatosis, unspecified; G47.33 Obstructive sleep apnea (adult) (pediatric); Z99.89 Dependence on other enabling machines and devices; Z90.710 Acquired absence of both cervix and uterus; Z96.651 Presence of right artificial knee joint; Z98.890 Other specified postprocedural states; Z87.2 Personal history of diseases of the skin and subcutaneous tissue; Z84.1 Family history of disorders of kidney and ureter; Z82.49 Family history of ischemic heart disease and other diseases of the circulatory system; Z80.9 Family history of malignant neoplasm, unspecified; Z79.1 Long term (current) use of non-steroidal anti-inflammatories (NSAID); Z79.891 Long term (current) use of opiate analgesic; Z79.899 Other long term (current) drug therapy; Z88.6 Allergy status to analgesic agent; Z88.0 Allergy status to penicillin; Z88.2 Allergy status to sulfonamides; Z88.8 Allergy status to other drugs, medicaments and biological substances; Z91.018 Allergy to other foods; Z91.040 Latex allergy status; Z91.048 Other nonmedicinal substance allergy status
CPT/HCPCS: 80051; 85027; 12020; J2250; J1100; J0690 ×2; J2405; J2001; J3010; J1885; J2704; J1170

== ENCOUNTER → 2020-09-14 | Outpatient (CLI) | payer OTHER ==
[2020-09-15 05:29] LABS: African American GFR (CKD) 61.9 (60.0-200.0); Albumin 4.3 g/dL (3.80-4.90); Albumin/Globulin Ratio 2.15 (1.60-3.17); Anion Gap 12.8 mmol/L (4.00-12.00); BUN/Creat Ratio 14.55 Ratio (12.00-20.00); Calcium 10.6 mg/dL (8.7-10.3); Carbon Dioxide 20.2 mmol/L (21.6-31.8); Non-African American GFR(CKD) 53.4 (60.0-200.0); Potassium 4.8 mmol/L (3.5-5.5); Total Bilirubin 0.5 mg/dL (0.3-1.2); Total Protein 6.3 g/dL (6.2-8.2)
== END | disposition home or self-care (01) ==
LOC: LABWHC1 16:12
PROVIDERS: ATTEND Internal Medicine Endocrinology, Diabetes & Metabolism
DX: E26.09 Other primary hyperaldosteronism (principal)
CPT/HCPCS: 36415; 80053

== ENCOUNTER 2020-09-23 17:34 | Emergency (ER) | payer OTHER ==
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
--- NOTE | 2020-09-23 19:43 | XR ---
Result: History: Status post knee replacement. Comparison: 08/16/2020. Technique: 3 views of the right knee. Findings: There are postsurgical changes of total knee arthroplasty with patellar resurfacing without evidence of hardware complication. No acute fracture or dislocation of is seen. No significant joint effusion . Impression: Status post right total knee arthroplasty without hardware complication or acute osseous abnormality.
[2020-09-23 20:42] VITALS: BP 141/81; PULSE 103; RESP 18; TEMP 97
== END 2020-09-23 20:42 | disposition home or self-care (01) ==
LOC: EC 17:34
DX: M54.2 Cervicalgia (principal); R07.89 Other chest pain; I10 Essential (primary) hypertension; M19.90 Unspecified osteoarthritis, unspecified site; K21.9 Gastro-esophageal reflux disease without esophagitis; G47.30 Sleep apnea, unspecified; Z79.899 Other long term (current) drug therapy; Z79.82 Long term (current) use of aspirin; Z88.8 Allergy status to other drugs, medicaments and biological substances; Z91.048 Other nonmedicinal substance allergy status; Z88.0 Allergy status to penicillin; Z91.09 Other allergy status, other than to drugs and biological substances; Z91.013 Allergy to seafood; Z88.2 Allergy status to sulfonamides; Z91.018 Allergy to other foods; Z91.040 Latex allergy status; Z88.6 Allergy status to analgesic agent; Z99.89 Dependence on other enabling machines and devices; Z96.651 Presence of right artificial knee joint; V89.2XXA Person injured in unspecified motor-vehicle accident, traffic, initial encounter; Y92.410 Unspecified street and highway as the place of occurrence of the external cause
CPT/HCPCS: 70450; 71250; 72125; 93005; 99284

== ENCOUNTER → 2020-10-07 | Outpatient (CLI) | payer OTHER ==
[2020-10-07 16:21] LABS: Basophils % (A) 1 %; Eosinophils # (A) 0.1 k/uL (0-0.7); Eosinophils % (A) 2 %; HCT 52.6 % (34.0-46.0); HGB 16.5 gm/dL (11.4-16.0); Lymphocytes # (A) 1.8 k/uL (1.0-4.8); Lymphocytes % (A) 26 %; MCH 31.9 pg (25.0-35.0); MCHC 31.4 g/dL (31.0-37.0); MCV 101.6 fL (80.0-100.0); Mean Platelet Volume 6.5; Monocytes # (A) 0.5 k/uL (0-1.0); Monocytes % (A) 7 %; Neutrophils # (A) 4.1 k/uL (1.3-7.7); Neutrophils % (A) 61 %; Platelet Count 290 k/uL (150-450); RBC 5.17 m/uL (3.80-5.40); RDW 12.3 % (11.5-15.5); WBC 6.7 k/uL (3.8-10.6)
[2020-10-08 00:17] LABS: African American GFR (CKD) 69.4 (60.0-200.0); Albumin 4.6 g/dL (3.80-4.90); Albumin/Globulin Ratio 2.19 (1.60-3.17); Anion Gap 9.7 mmol/L (4.00-12.00); Calcium 10.2 mg/dL (8.7-10.3); Carbon Dioxide 24.3 mmol/L (21.6-31.8); Globulin 2.1 g/dL (1.6-3.3); Non-African American GFR(CKD) 59.9 (60.0-200.0); Potassium 4.7 mmol/L (3.5-5.5); Total Bilirubin 0.5 mg/dL (0.3-1.2); Total Protein 6.7 g/dL (6.2-8.2)
[2020-10-08 00:18] LABS: % Iron Saturation 36.56 (12.00-45.00)
== END | disposition home or self-care (01) ==
LOC: LABWHC1 15:31
PROVIDERS: ATTEND Internal Medicine Endocrinology, Diabetes & Metabolism
DX: E83.52 Hypercalcemia (principal); E83.110 Hereditary hemochromatosis
CPT/HCPCS: 36415; 80053; 82306; 82728; 83540; 83550; 83970; 85025

== ENCOUNTER → 2021-05-22 | Outpatient (CLI) | payer OTHER ==
[2021-05-22 22:09] LABS: African American GFR (CKD) 78.3 (60.0-200.0); Albumin 4.5 g/dL (3.80-4.90); Albumin/Globulin Ratio 2.05 (1.60-3.17); Anion Gap 11.9 mmol/L (4.00-12.00); BUN/Creat Ratio 27.78 Ratio (12.00-20.00); Calcium 9.7 mg/dL (8.7-10.3); Carbon Dioxide 23.1 mmol/L (21.6-31.8); Globulin 2.2 g/dL (1.6-3.3); Non-African American GFR(CKD) 67.6 (60.0-200.0); Potassium 4.5 mmol/L (3.5-5.5); Total Bilirubin 0.5 mg/dL (0.2-1.2); Total Protein 6.7 g/dL (6.2-8.2)
== END | disposition home or self-care (01) ==
LOC: LABWHC1 10:34
PROVIDERS: ATTEND Internal Medicine Endocrinology, Diabetes & Metabolism
DX: E55.9 Vitamin D deficiency, unspecified (principal); E26.09 Other primary hyperaldosteronism
CPT/HCPCS: 36415; 80053; 82306

== ENCOUNTER → 2021-11-20 | Outpatient (CLI) | payer OTHER ==
[2021-11-20 17:05] LABS: African American GFR (CKD) 68.1 (60.0-200.0); Albumin 4.5 g/dL (3.8-4.9); Albumin/Globulin Ratio 2.09 (1.60-3.17); Anion Gap 16.5 mmol/L (10.00-18.00); BUN/Creat Ratio 25.94 Ratio (12.00-20.00); Blood Urea Nitrogen 26.2 mg/dL (9.0-27.0); Calcium 10.3 mg/dL (8.7-10.3); Carbon Dioxide 21.3 mmol/L (20.0-27.5); Globulin 2.1 g/dL (1.6-3.3); Non-African American GFR(CKD) 58.8 (60.0-200.0); Potassium 4.7 mmol/L (3.5-5.5); Total Bilirubin 0.6 mg/dL (0.30-1.20); Total Protein 6.6 g/dL (6.2-8.2)
== END | disposition home or self-care (01) ==
LOC: LABWHC1 08:42
PROVIDERS: ATTEND Internal Medicine Endocrinology, Diabetes & Metabolism
DX: E26.09 Other primary hyperaldosteronism (principal); E55.9 Vitamin D deficiency, unspecified
CPT/HCPCS: 36415; 80053; 82306

== ENCOUNTER 2022-04-26 07:37 | Day surgery (SDC) | payer OTHER ==
[2022-04-24 18:01] VITALS: BMI 34.7
[2022-04-26] MEDS ORDERED: LACTATED RINGERS 1,000 ML IV SCH (07:58)
[2022-04-26 08:04] VITALS: RESP 16; TEMP 96.8
[2022-04-26] MEDS ORDERED: LIDOCAINE 1% (10MG/ML) FOR IV START INTRADERMA ONE (08:10)
[2022-04-26] MEDS ORDERED: PROPOFOL 10 MG/ML 20 ML VIAL IV ONE (08:23)
[2022-04-26] MEDS ORDERED: LIDOCAINE 2% INJ 20 MG/ML (2 ML VIAL) ONE (08:23)
[2022-04-26 08:28] LABS: Glucose,Whole Blood 78 mg/dL (75-99)
--- NOTE | 2022-04-26 08:51 | P.PCN ---
Date of Procedure: 04/26/22 Procedure(s) Performed: Brief history: Patient is a pleasant 67-year-old white female scheduled for an upper endoscopy as well as colonoscopy as a part of evaluation of GERD and prior history of colon polyps. Procedure performed: Esophagogastroduodenoscopy with biopsy Colonoscopy Preoperative diagnosis: Family history of GERD and prior history of colon polyps Anesthesia: MAC Procedure: After informed consent was obtained from the patient was brought into the endoscopy unit and IV sedation was administered by anesthesia under continuous monitoring. Initially upper endoscopy was done. The Olympus GF 160 video endoscope was inserted inserted into the mouth and esophagus intubated without any difficulty and was gradually advanced into the stomach and duodenum and carefully examined. The bulb and second part of the duodenum appeared normal. The scope was then withdrawn into the stomach adequately insufflated with air and upon careful examination the antrum had scattered erosions and biopsies were done from this area. The body, cardia and fundus appeared normal. The scope was then withdrawn into the esophagus. The GE junction was located at 37 cm to the incisors. It appeared regular superficial erosions consistent with LA grade B reflux esophagitis. There was a small hiatal hernia noted. The GE junction there was a 5 limited polyp that was biopsied. Rest of the esophagus appeared normal. Patient tolerated the procedure well. At this time the patient continued to remain sedation. Initial digital rectal examination was normal. Olympus CF 160 video colonoscope was then inserted into the rectum and gradually advanced to the cecum without any difficulty. Careful examination was performed as the scope was gradually being withdrawn. The prep was excellent. The cecum, ascending colon, transverse colon, descending colon, sigmoid colon and rectum appeared normal. Scattered sigmoid diverticulosis Retroflexion was performed in the rectum and grade 2 internal hemorrhoids were noted. Patient tolerated the procedure well. Impression: 1. Upper Endoscopy revealed antral erosive gastritis, small hiatal hernia, LA grade B reflux esophagitis and a 5 mm GE junction polyp that was biopsied 2. Colonoscopy revealed scattered sigmoid diverticula cyst and small internal hemorrhoids Recommendations: Findings of this examination were discussed with the patient as well as her family. She was advised to follow with the biopsy results. She was advised to stop the Pepcid and start omeprazole 20 mg daily half hour before breakfast and follow antireflux measures. She can have a repeat colonoscopy in 5 years because of the prior history of colon polyps
[2022-04-26 09:24] VITALS: BP 123/73; PULSE 70
== END 2022-04-26 09:39 | disposition home or self-care (01) ==
LOC: ORWHC2ENDO 07:37
PROVIDERS: ATTEND Internal Medicine Gastroenterology
DX: Z12.11 Encounter for screening for malignant neoplasm of colon (principal); K57.30 Diverticulosis of large intestine without perforation or abscess without bleeding; K21.00 Gastro-esophageal reflux disease with esophagitis, without bleeding; K44.9 Diaphragmatic hernia without obstruction or gangrene; K29.50 Unspecified chronic gastritis without bleeding; K64.0 First degree hemorrhoids; Z86.010 Personal history of colon polyps; Z79.1 Long term (current) use of non-steroidal anti-inflammatories (NSAID); Z79.82 Long term (current) use of aspirin; Z79.899 Other long term (current) drug therapy; I49.9 Cardiac arrhythmia, unspecified; I10 Essential (primary) hypertension; G47.33 Obstructive sleep apnea (adult) (pediatric); M79.7 Fibromyalgia; Z90.710 Acquired absence of both cervix and uterus; Z88.8 Allergy status to other drugs, medicaments and biological substances; Z88.6 Allergy status to analgesic agent; Z91.040 Latex allergy status; Z91.013 Allergy to seafood
CPT/HCPCS: 88305; 43239; J2704; J2001; G0105; 45378

== ENCOUNTER → 2022-07-24 | Outpatient (CLI) | payer OTHER, MEDICARE | END | disposition home or self-care (01) | LOC: LABWHC1 11:26 | PROVIDERS: ATTEND Internal Medicine Endocrinology, Diabetes & Metabolism | DX: Z53.9 Procedure and treatment not carried out, unspecified reason (principal) ==

== ENCOUNTER 2022-08-21 06:03 | Inpatient (IN) | payer OTHER, MEDICARE ==
[2022-08-17 11:11] VITALS: BMI 35.1
--- NOTE | 2022-08-20 09:16 | P.HPOR ---
History of Present Illness H&P Date: 08/20/22 Chief Complaint: Left shoulder pain The patient is a 67-year-old [id number] female who presents with left shoulder pain worsening for the past several years. She has significant pain with overhead activity and at night. She tried medications without much relief. She notes daily pain that limits her. Review of Systems As per HPI Past Medical History Past Medical History: Fibromyalgia, GERD/Reflux, Hypertension, Osteoarthritis (OA), Skin Disorder, Sleep Apnea/CPAP/BIPAP Additional Past Medical History / Comment(s): HX TACHYCARDIA, LICHEN PLANUS (MOUTH), HYPOGLYCEMIA, USES C-PAP MACHINE, SHE SEES DR PERRIN FOR ADRENAL GLANDS. HEMOCHROMATOSIS-STATES SHE CLOTS EASILY. c/o MUSCLE SPASMS, uses CPAP History of Any Multi-Drug Resistant Organisms: None Reported Past Surgical History: Section, Heart Catheterization, Hysterectomy, Joint Replacement, Orthopedic Surgery Additional Past Surgical History / Comment(s): BENIGN TUMOR RT ANKLE, Bilat TOTAL KNEE, LEFT KNEE ARTHROSCOPY. REPAIR OF RT LITTLE FINGER NEAR AMPUTATION. COLONOSCOPY. BILAT CTR, HEART CATH AUG 2018 ([facility]- DR VILLANUEVA), Past Anesthesia/Blood Transfusion Reactions: No Reported Reaction, Family History of Problems w/ Anesthesia Additional Past Anesthesia/Blood Transfusion Reaction / Comment(s): daughter hysterical and confused. Smoking Status: Never smoker - Past Family History Mother Family Medical History: Fibromyalgia Additional Family Medical History / Comment(s): arthritis Father Family Medical History: Cancer, Diabetes Mellitus, Hypertension, Renal Disease Additional Family Medical History / Comment(s): heart problems, mult [place], prostate cancer Medications and Allergies Home Medications Medication Instructions Recorded Confirmed Type Loratadine [Claritin] 10 mg PO DAILY 06/13/17 08/17/22 History Aspirin 325 mg PO DAILY 08/11/20 08/17/22 History Ibuprofen [Motrin] 600 mg PO Q8HR PRN 08/11/20 08/17/22 History Magnesium 250 - 500 mg PO HS PRN 08/11/20 08/17/22 History Metoprolol Succinate [Toprol XL] 50 mg PO DAILY 08/11/20 08/17/22 History Spironolactone 75 mg PO DAILY 08/11/20 08/17/22 History dexAMETHasone ORAL SOLUTION 10 mg PO Q8HR PRN 08/11/20 08/17/22 History [Decadron Oral Solution] Inulin/Chromium Picolinate [Fiber 1 each PO HS PRN 09/05/20 08/17/22 History Gummies Chew] Omeprazole 20 mg PO DAILY 08/17/22 08/17/22 History Allergies Allergy/AdvReac Type Severity Reaction Status Date / Time amlodipine [From [facility]] Allergy Severe fluid Verified 08/17/22 10:49 retention, swelling 5 # fluid gain nickel Allergy Unknown 2 Verified 08/17/22 10:49 daughters have nickel allergy -does not want. amoxicillin Allergy Rash/Hives Verified 08/17/22 10:49 cigarette smoke Allergy migraines Verified 08/17/22 10:49 perfume Allergy migraines Verified 08/17/22 10:49 pollen extracts Allergy alg testing Verified 08/17/22 10:49 shellfish derived [Shellfish] Allergy alg testing Verified 08/17/22 10:49 soy Allergy bloating/alg Verified 08/17/22 10:49 testing Sulfa (Sulfonamide Allergy Rash/Hives Verified 08/17/22 10:49 Antibiotics) wheat Allergy bloating/alg Verified 08/17/22 10:49 testing isosorbide [From Imdur] AdvReac Severe MIGRAINE Verified 08/17/22 10:49 nitroglycerin AdvReac Severe MIGRAINE Verified 08/17/22 10:49 WITH NITRO PASTE Latex, Natural Rubber AdvReac Itching Verified 08/17/22 10:49 meloxicam [From Mobic] AdvReac Abdominal Verified 08/17/22 10:49 Pain Physical Examination - Shoulder left Appearance: effusion Effusion grade: grade 1 Tenderness with palpation: anterior Pain: with forward flexion ROM: forward flexion: 140 degrees ROM: internal rotation: upper lumbar ROM: external rotation: 60 degrees Strength: abduction: 5/5 Strength: forward flexion: 5/5 Tests: internal impingement tests: positive Results The patient's a well-developed well-nourished female proximally 5 foot 2, 180 pounds of endomorphic habitus. HEENT exam is nonfocal. Neck is supple. Her distal neurovascular appears intact in left upper extremity. - Diagnostic results Shoulder x-ray: image reviewed (3 views of the left shoulder obtain the office show severe glenohumeral joint space narrowing with [id number] changes and subchondral sclerosis. The humeral head to acromion distance appears to be maintained.) Assessment and Plan Assessment: Left severe glenohumeral joint osteoarthrosis Plan: I talked to the patient regarding her condition along with treatment options. At this point she is quite symptomatic and limited because of pain related to her osteoarthrosis despite previous conservative measures. After thorough discussion she has proceed with surgery. We'll proceed with a left total shoulder arthroplasty. Risks and benefits were discussed at length in layman's terms. Time with Patient: Less than 30
[~2022-08-21 06:03] MED LIST changes: +ACETAMINOPHEN TAB 500 MG TAB PO PRN; -DEXAMETHASONE SOD PHOSPHATE 10 MG/ML 1 ML VIAL IV ONE; -HYDROcodone/APAP 7.5-325MG 1 EACH TAB ONE; -HYDROcodone/APAP 7.5-325MG 1 EACH TAB PO ONE; -KETOROLAC 15 MG/ML 1 ML VIAL ONE; -LACTATED RINGERS 1,000 ML IV SCH; -LIDOCAINE 1% INJ 10MG/ML (20 ML MDV) ONE; +MELOXICAM 7.5 MG TAB PO PRN; -MIDAZOLAM 2 MG/2 ML VIAL IV PRN; -MIDAZOLAM 2 MG/2 ML VIAL ONE; -ONDANSETRON 4 MG/2 ML VIAL IVP ONE; -PROPOFOL 10 MG/ML 20 ML VIAL IV ONE; -SCOPOLAMINE 1.5MG/72HR PATCH TRANSDERM ONE; +TRANEXAMIC ACID IN NACL,ISO-OS 1,000 MG in SALINE 1 100ML.BAG IVPB PRN; +VANCOMYCIN 1,250 MG in SODIUM CHLORIDE 0.9% 250 ML IVPB PRN; -ceFAZolin 1,000 MG in SODIUM CHLORIDE 0.9% 1,000 ML IRRIGATION ONE; -fentaNYL (PF) 50 MCG/ML 2 ML AMP ONE
[2022-08-21] MEDS ORDERED: DEXAMETHASONE SOD PHOSPHATE 4 MG/ML 1 ML VIAL IV ONE (06:09)
[2022-08-21] MEDS ORDERED: HYDROmorphone 0.5 MG/0.5 ML SYRINGE IVP PRN (06:09)
[2022-08-21] MEDS ORDERED: ONDANSETRON 4 MG/2 ML VIAL IVP ONE (06:09)
[2022-08-21] MEDS: LACTATED RINGERS 1,000 ML IV SCH (07:08)
[2022-08-21 07:15] LABS: Basophils # (A) 0.1 k/uL (0-0.2); Basophils % (A) 1 %; Eosinophils # (A) 0.1 k/uL (0-0.7); Eosinophils % (A) 2 %; HCT 49.1 % (34.0-46.0); HGB 16.2 gm/dL (11.4-16.0); Lymphocytes # (A) 2.3 k/uL (1.0-4.8); Lymphocytes % (A) 30 %; MCH 32.7 pg (25.0-35.0); MCHC 32.9 g/dL (31.0-37.0); MCV 99.4 fL (80.0-100.0); Mean Platelet Volume 7.2; Monocytes # (A) 0.4 k/uL (0-1.0); Monocytes % (A) 5 %; Neutrophils # (A) 4.8 k/uL (1.3-7.7); Neutrophils % (A) 61 %; Platelet Count 288 k/uL (150-450); RBC 4.94 m/uL (3.80-5.40); RDW 12.1 % (11.5-15.5); WBC 7.8 k/uL (3.8-10.6)
[2022-08-21 07:15] LABS: Glucose,Whole Blood 74 mg/dL (70-110)
[2022-08-21] MEDS ORDERED: MIDAZOLAM 2 MG/2 ML VIAL IVP ONE (07:31)
[2022-08-21] MEDS ORDERED: fentaNYL (PF) 50 MCG/ML 2 ML AMP IVP ONE (07:32)
[2022-08-21] MEDS ORDERED: PROPOFOL 10 MG/ML 20 ML VIAL IV ONE (07:52)
[2022-08-21] MEDS ORDERED: TRANEXAMIC ACID IN NACL,ISO-OS 1,000 MG/100 ML BAG ONE (07:52)
[2022-08-21] MEDS ORDERED: LIDOCAINE 2% INJ 20 MG/ML (2 ML VIAL) ONE (07:52)
[2022-08-21] MEDS ORDERED: SODIUM CHLORIDE 0.9% (PF) 10 ML VIAL ONE (07:52)
[2022-08-21] MEDS ORDERED: SUCCINYLCHOLINE CHLORIDE 200 MG/10 ML VIAL IV ONE (07:52)
[2022-08-21] MEDS ORDERED: fentaNYL (PF) 50 MCG/ML 2 ML AMP ONE (07:52)
[2022-08-21] MEDS ORDERED: DEXAMETHASONE SOD PHOSPHATE 4 MG/ML 1 ML VIAL ONE (07:52)
[2022-08-21] MEDS ORDERED: ROPIVACAINE 5 MG/ML 30 ML VIAL ONE (07:52)
[2022-08-21] MEDS ORDERED: ePHEDrine 50 MG/ML 1 ML VIAL ONE (07:52)
[2022-08-21 08:04] LABS: INR 0.9 (<1.2); Prothrombin Time 10.3 sec (9.0-12.0)
[2022-08-21] MEDS ORDERED: HYDROcodone/APAP 5-325MG 1 EACH TAB PO PRN (09:43)
[2022-08-21] MEDS ORDERED: SENNOSIDES-DOCUSATE SODIUM 1 EACH TAB PO PRN (09:43)
[2022-08-21] MEDS ORDERED: LACTATED RINGERS 1,000 ML IV ONE (09:54)
[2022-08-21] MEDS: ONDANSETRON 4 MG/2 ML VIAL IVP PRN (10:07)
--- NOTE | 2022-08-21 10:08 | P.OP ---
Date of Procedure: 08/21/22 Preoperative Diagnosis: Severe left glenohumeral joint osteoarthrosis Postoperative Diagnosis: Same Procedure(s) Performed: Left total shoulder arthroplasty Implants: Arthrex small vault lock glenoid, 39 x 16 humeral head, 39 mm trunnion, small cage screw Anesthesia: arina LAWSON Surgeon: Anthony Joshi Vice President Of Instruction #1: Charly Davies Estimated Blood Loss (ml): 100 Pathology: other (Humeral head) Condition: stable Disposition: PACU Indications for Procedure: The patient is a 67-year-old female presents with progressive left shoulder pain secondary to osteoporosis despite conservative measures. A discussion of the risks and benefits of operative intervention versus continued conservative measures with patient. She opted to proceed with surgery. Operative risks to include infection, neurovascular injury, development of blood clots, fracture, possible component loosening/failure and need for subsequent procedures was discussed. Informed consent was obtained. Operative Findings: As below Description of Procedure: The patient was brought to the operating room, and after induction of general anesthesia was placed in the beachchair position. The bony prominences were appropriately padded. The right upper extremity was prepped and draped in normal fashion. A deltopectoral incision was then made lateral to the coracoid process extending approximately 12 cm. The skin was incised sharply. Subcutaneous tissues were divided bluntly. Electrocautery was used for hemostasis. The deltopectoral interval was identified and the cephalic vein gently retracted laterally with the deltoid. Subdeltoid adhesions were bluntly dissected. A self-retaining retractor was placed. The clavipectoral fascia was opened and the conjoined tendon gently retracted medially. The upper one third of the pectoralis major was released to help facilitate exposure. The biceps was identified and the sheath was opened. The rotator interval was opened. The biceps was tenotomized and allowed to retract distally. A subscap tear was performed and this was tagged with #2 Ethibond. The humeral head was then exposed releasing the capsule off the humeral neck. The shoulder was gently dislocated. The inferior osteophytes were removed flush with the cortical bone. The cutting guide was placed planning on a cut flush with the rotator cuff insertion and 30 of retroversion. The cutting block was pinned in place. The humeral head cut was then made. The metaphyseal bone was prepared with the appropriate hand laster. A protecting plate was placed. A posterior glenoid retractor was placed. The glenoid was then exposed releasing the labrum from the 6-12 o'clock position. Residual labral tissue was removed. The glenoid sized most appropriate small. A guidewire was then inserted planning on the appropriate version with the guide as preoperatively planned. The glenoid was reamed down to a bleeding bony surface. The central peg hole was drilled. The alignment guide was placed in the peripheral peg holes drilled. The trial small glenoid was placed and was fully seated. There was good anterior to posterior and inferior to superior fit. The trial component was removed. Pulsatile lavage was utilized. The bony surface was dried. The peripheral peg holes were then pressurized with cement utilizing a syringe. Excess cement was removed. A central peg glenoid was then placed and was fully seated. This was gently impacted. This was held in place until the cement had sufficiently hardened. Attention was then paid again towards preparing the proximal humerus. I planned on a small cage screw. The trunnion was placed along with the cage screw. This was appropriately tightened. A trial 39 x 16 humeral head was placed. The shoulder was gently reduced. . It was taken through a range of motion. It was felt to be stable in flexion and extension with internal and external rotation. I felt there was adequate catholic of soft tissue tension. The shoulder was gently dislocated. The trial head was then removed. The final 39 x 16 mm head was gently impacted. The speedscap was used for reattachment of the subscapularis. 2 anchors were placed medially, and 2 in the bicipital groove. The rotator interval was closed with #2 Ethibond suture. Pulsatile lavage was utilized. The rotator interval was closed with #2 Ethibond suture. She had minimal drainage at this point therefore a deep drain was not placed. The deltopectoral interval was closed with interrupted 2-0 Vicryl sutures. The subcu tissues were reapproximated with interrupted 2-0 Vicryl sutures. The skin was reapproximated with 3-0 subcuticular Prolene suture. Steri-Strips were applied. A sterile dressing was applied in addition to a sling. The patient was then awoken from general anesthesia and transferred to recovery room in good condition. Blood loss was estimated at 100 mL. No complications were incurred. Sponge and needle counts were correct at the end the case. Florencio JIMENEZ assisted general major components of the case to include positioning, exposure, resection, implantation, and closure.
[2022-08-21] MEDS ORDERED: diphenhydrAMINE 50 MG/ML 1 ML VIAL IVP ONE (10:38)
--- NOTE | 2022-08-21 10:46 | XR ---
EXAMINATION TYPE: XR shoulder limited LT DATE OF EXAM: 08/21/2022 10:39 AM INDICATION: Patient age:Female; 67 years old; Reason for study: s/p left total shoulder arthroplasty; COMPARISON: CT left shoulder 07/24/2022 TECHNIQUE: The left shoulder was examined in frontal view. FINDINGS: Postsurgical changes of the left shoulder with humeral head prosthesis. Hardware appears intact with appropriate alignment. Advanced degenerative changes of the glenoid with subchondral cystic changes a nd sclerosis. Mild AC joint arthropathy. No acute fracture. The remaining portions of the visualized chest are unremarkable. IMPRESSION: 1. Postsurgical changes of the humeral head with arthroplasty. Hardware appears intact with appropri ate alignment. 2. Advanced degenerative changes of the glenoid.
[2022-08-21] MEDS: MAGNESIUM OXIDE 400 MG TAB PO SCH (16:59)
[2022-08-21] MEDS ORDERED: ACETAMINOPHEN TAB 325 MG TAB PO PRN (17:01)
--- NOTE | 2022-08-21 18:19 | P.CONS ---
History of Present Illness - Reason for Consult Consult date: 08/21/22 - Chief Complaint Status post left shoulder arthroplasty - History of Present Illness Patient is a 67-year-old female with a past medical history of GERD, hypertension, prostatitis, lites and plan this of the mouth, NIKKI, hemochromatosis who is admitted for left total shoulder arthroplasty. Medicine has been consulted for medical management. Patient is denying any pain however she states that she is not able to move the fingers in the left arm. She is aware that it is likely due to the nerve block given during surgery. Patient also stated that she is not used to just lying in bed. 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 Review of Systems 10 ROS reviewed and are negative except as noted in HPI Past Medical History Past Medical History: Fibromyalgia, GERD/Reflux, Hypertension, Osteoarthritis (OA), Skin Disorder, Sleep Apnea/CPAP/BIPAP Additional Past Medical History / Comment(s): HX TACHYCARDIA, LICHEN PLANUS (MOUTH), HYPOGLYCEMIA, USES C-PAP MACHINE, SHE SEES DR PERRIN FOR ADRENAL GLANDS. HEMOCHROMATOSIS-STATES SHE CLOTS EASILY. c/o MUSCLE SPASMS, uses CPAP History of Any Multi-Drug Resistant Organisms: None Reported Past Surgical History: Section, Heart Catheterization, Hysterectomy, Joint Replacement, Orthopedic Surgery Additional Past Surgical History / Comment(s): BENIGN TUMOR RT ANKLE, Bilat TOTAL KNEE, LEFT KNEE ARTHROSCOPY. REPAIR OF RT LITTLE FINGER NEAR AMPUTATION. COLONOSCOPY. BILAT CTR, HEART CATH AUG 2018 ([facility]- DR VILLANUEVA), Past Anesthesia/Blood Transfusion Reactions: No Reported Reaction, Family History of Problems w/ Anesthesia Additional Past Anesthesia/Blood Transfusion Reaction / Comm: daughter hysterical and confused. Past Psychological History: No Psychological Hx Reported Smoking Status: Never smoker Past Alcohol Use History: None Reported Past Drug Use History: None Reported - Past Family History Mother Family Medical History: Fibromyalgia Additional Family Medical History / Comment(s): arthritis Father Family Medical History: Cancer, Diabetes Mellitus, Hypertension, Renal Disease Additional Family Medical History / Comment(s): heart problems, mult [place], prostate cancer Medications and Allergies Home Medications Medication Instructions Recorded Confirmed Type Loratadine [Claritin] 10 mg PO DAILY 06/13/17 08/21/22 History Aspirin 325 mg PO DAILY 08/11/20 08/21/22 History Ibuprofen [Motrin] 600 mg PO Q8HR PRN 08/11/20 08/21/22 History Magnesium 250 - 500 mg PO HS PRN 08/11/20 08/21/22 History Metoprolol Succinate [Toprol XL] 50 mg PO DAILY 08/11/20 08/21/22 History Spironolactone 75 mg PO DAILY 08/11/20 08/21/22 History dexAMETHasone ORAL SOLUTION 10 mg PO Q8HR PRN 08/11/20 08/21/22 History [Decadron Oral Solution] Inulin/Chromium Picolinate [Fiber 1 each PO HS PRN 09/05/20 08/21/22 History Gummies Chew] Omeprazole 20 mg PO DAILY 08/17/22 08/21/22 History Acetaminophen [Tylenol Extra 1,000 mg PO Q6H PRN 08/21/22 08/21/22 History Strength] Allergies Allergy/AdvReac Type Severity Reaction Status Date / Time [facility] Allergy Severe fluid Verified 08/21/22 06:46 retention, swelling 5 # fluid gain nickel Allergy Unknown 2 Verified 08/21/22 06:46 daughters have nickel allergy -does not want. amoxicillin Allergy Rash/Hives Verified 08/21/22 06:46 cigarette smoke Allergy migraines Verified 08/21/22 06:46 perfume Allergy migraines Verified 08/21/22 06:46 pollen extracts Allergy alg testing Verified 08/21/22 06:46 shellfish derived [Shellfish] Allergy alg testing Verified 08/21/22 06:46 soy Allergy bloating/alg Verified 08/21/22 06:46 testing Sulfa (Sulfonamide Allergy Rash/Hives Verified 08/21/22 06:46 Antibiotics) wheat Allergy bloating/alg Verified 08/21/22 06:46 testing isosorbide [From Imdur] AdvReac Severe MIGRAINE Verified 08/21/22 06:46 nitroglycerin AdvReac Severe MIGRAINE Verified 08/21/22 06:46 WITH NITRO PASTE Latex, Natural Rubber AdvReac Itching Verified 08/21/22 06:46 meloxicam [From Mobic] AdvReac Abdominal Verified 08/21/22 06:46 Pain Physical Exam Osteopathic Statement: *. No significant issues noted on an osteopathic stru ctural exam other than those noted in the History and Physical/Consult. Vitals: Vital Signs Temp Pulse Pulse Resp BP BP Pulse Ox 08/21/22 13:56 98.2 F 93 17 122/66 95 08/21/22 13:00 89 16 123/63 94 L 08/21/22 12:30 90 16 126/62 97 08/21/22 12:05 72 16 146/73 94 L 08/21/22 11:45 73 16 136/64 94 L 08/21/22 11:30 81 16 140/63 94 L 08/21/22 11:15 78 16 129/63 95 08/21/22 11:00 71 16 128/62 94 L 08/21/22 10:44 75 16 139/64 94 L 08/21/22 10:29 70 16 129/67 95 08/21/22 10:14 78 16 130/71 95 08/21/22 09:58 97.2 F L 84 14 131/75 95 08/21/22 07:38 58 L 16 103/56 94 L 08/21/22 06:44 97.5 F L 72 16 124/59 98 Intake and Output 08/21/22 08/21/22 08/21/22 06:59 14:59 22:59 Intake Total 1750 Output Total 800 Balance 950 Intake: IV 1750 Output: Urine 700 Estimated Blood Loss 100 Other: # Voids 3 Weight 86.5 kg 86.5 kg General: [Alert and oriented, well nourished, no acute distress]. Eye: [PERRL, EOMI, normal conjunctiva]. HENT: [Normocephalic, clear tympanic membranes, normal hearing, moist oral mucosa, no scleral icterus, no sinus tenderness]. Neck: [Supple, non-tender, no carotid bruits, no JVD, no lymphadenopathy]. Lungs: [Clear to auscultation and percussion, non-labored respiration]. Heart: [Normal rate, regular rhythm, no murmur, gallop or edema]. Abdomen: [Soft, non-tender, non-distended, normal bowel sounds, no masses]. Musculoskeletal: [Normal range of motion and strength, no tenderness or swelling, left arm in sling]. Skin: [Skin is warm, dry and pink, no rashes or lesions]. Neurologic: [Awake, alert, and oriented X3, CN II-XII intact]. Psychiatric: [Cooperative, appropriate mood and affect]. 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
[2022-08-21] MEDS ORDERED: VANCOMYCIN 1,250 MG in SODIUM CHLORIDE 0.9% 250 ML IVPB ONE (19:00)
[2022-08-21] MEDS ORDERED: HYDROCORTISONE 1% CREAM 30 GM TUBE TOPICAL PRN (20:10)
[2022-08-22] MEDS: HYDROmorphone 0.5 MG/0.5 ML SYRINGE IVP PRN ×5 (00:38→21:31)
[2022-08-22] MEDS: HYDROcodone/APAP 7.5-325MG 1 EACH TAB PO PRN ×4 (01:51→18:46)
[2022-08-22] MEDS ORDERED: VANCOMYCIN IV PER PHARMACY 1 EACH MISC MISCELLANE SCH (07:00)
[2022-08-22] MEDS ORDERED: ASPIRIN 325 MG TAB PO SCH (09:00)
[2022-08-22] MEDS: LACTATED RINGERS 1,000 ML IV SCH (09:28)
--- NOTE | 2022-08-22 10:19 | P.PN ---
Subjective Progress Note Date: 08/22/22 Principal diagnosis: Severe left glenohumeral joint osteoarthrosis Patient was seen at bedside this morning with sling to left upper extremity. Patient currently rates her pain is 6/7 out of 10. Patient feels that she needs to stay 1 more night for pain to get under better control. Patient says she has urinated several times since surgery. Patient says she has not had bowel movement yet, however, patient has been passing gas. Patient denies chest pain, fever, shortness of breath, nausea, vomiting, change in vision, loss of bowel/bladder control. Objective - Vital Signs Vital signs: Vital Signs Temp 98.3 F 08/22/22 02:00 Pulse 88 08/22/22 02:00 Resp 17 08/22/22 02:00 BP 109/71 08/22/22 02:00 Pulse Ox 92 L 08/22/22 02:00 FiO2 Intake & Output 08/21/22 08/22/22 08/22/22 18:59 06:59 18:59 Intake Total 1750 Output Total 800 Balance 950 Weight 86.5 kg Intake: IV 1750 Output: Urine 700 Estimated Blood Loss 100 Other: Voiding Method Toilet # Voids 3 3 # Bowel Movements 0 - Exam Left shoulder: Sling present to LUE. Incision is clean, dry, and intact. The bulky dressing is in good condition. There is minimal soft tissue swelling and ecchymosis surroun ding the aspects of the incision. Calf is soft, no tenderness with palpation. Plantar flexion, dorsiflexion, EHL, FHL are intact. Patient has full ROM in left wrist in flexion/extension. 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 Sensory exam to light touch throughout the extremity is intact, radial pulses 2+. - Labs CBC & Chem 7: 08/21/22 07:10 Assessment and Plan Assessment: Severe left glenohumeral joint osteoarthrosis -Postoperative day #1 status post Left total shoulder arthroplasty Plan: 1. Severe left glenohumeral joint osteoarthrosis - left total shoulder arthropl asty performed yesterday, 08/21/2022. Patient stable at bedside this morning. We will add Vistaril 25 mg every 6 hours to help with pain control. Plan for discharge home tomorrow. Maintain sling to left upper extremity at this time. Remain non-weightbearing left upper extremity. 2. Appreciate medical management 3. Pain management - [place] 7.5 mg/325 mg; Vistaril 25 mg 16h; IV pain meds only when necessary 4. DVT ppx - Aspirin 325 mg 5. GI ppx - protonix; senna 6. PT/OT - KORIN MARTINEZ 7. Discharge planning - plan for home without services tomorrow, , 08/23/2022 Time with Patient: Less than 30
[2022-08-22 10:27] LABS: Basophils # (A) 0.03 X 10*3/uL (0.00-0.10); Basophils % (A) 0.2 %; Eosinophils # (A) 0.01 X 10*3/uL (0.04-0.35); Eosinophils % (A) 0.1 %; HCT 41.8 % (37.2-46.3); HGB 13.9 g/dL (12.0-15.0); Immature Grans, Automated 0.5 %; Lymphocytes # (A) 1.79 X 10*3/uL (0.90-5.00); Lymphocytes % (A) 12.6 %; MCH 32.6 pg (27.0-32.0); MCHC 33.3 g/dL (32.0-37.0); MCV 98.1 fL (80.0-97.0); Mean Platelet Volume 9.8 fL (9.5-12.2); Monocytes # (A) 1.49 X 10*3/uL (0.20-1.00); Monocytes % (A) 10.5 %; NRBC Per 100 WBC 0 /100 WBCS (0.0-0.0); Neutrophils # (A) 10.77 X 10*3/uL (1.80-7.70); Neutrophils % (A) 76.1 %; Platelet Count 265 X 10*3/uL (140-440); RBC 4.26 X 10*6/uL (4.10-5.20); RDW 12.4 % (11.5-14.5); WBC 14.16 X 10*3/uL (4.50-10.00)
[2022-08-22] MEDS: ASPIRIN 325 MG TAB PO SCH (11:29)
[2022-08-22] MEDS: METOPROLOL SUCCINATE (ER) 50 MG TAB.ER.24H PO SCH (11:30)
[2022-08-22] MEDS: MAGNESIUM OXIDE 400 MG TAB PO SCH (11:30)
[2022-08-22] MEDS: SPIRONOLACTONE 25 MG TAB PO SCH (11:30)
[2022-08-22] MEDS: PANTOPRAZOLE 40 MG TABLET PO SCH (11:30)
[2022-08-22] MEDS: LORATADINE 10 MG TAB PO SCH (11:30)
[2022-08-22] MEDS: hydrOXYzine pamoate 25 MG CAP PO PRN ×2 (12:57→18:46)
--- NOTE | 2022-08-22 13:31 | P.PN ---
Subjective Progress Note Date: 08/22/22 Patient states that last night she had severe left shoulder pain. She stated that she is trending to get a control with IV Dilaudid and oral pain meds. She says that orthopedic surgery told her that she will be staying today until her pain is better controlled. Objective - Vital Signs Vital signs: Vital Signs Temp 98.3 F 08/22/22 02:00 Pulse 88 08/22/22 02:00 Resp 17 08/22/22 02:00 BP 109/71 08/22/22 02:00 Pulse Ox 92 L 08/22/22 02:00 FiO2 Intake & Output 08/21/22 08/22/22 08/22/22 18:59 06:59 18:59 Intake Total 1750 Output Total 800 Balance 950 Weight 86.5 kg Intake: IV 1750 Output: Urine 700 Estimated Blood Loss 100 Other: Voiding Method Toilet # Voids 3 3 # Bowel Movements 0 - Exam General examination - Alert and Oriented 3 in NAD Heart - + S1S2 no murmurs Lungs - Clear to auscultation Abdomen soft NT ND +ve BS Extremities - No edema, left shoulder in sling 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 - Moving 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 4 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 spontaneously Psych - Calm and cooperative - Labs CBC & Chem 7: 08/22/22 06:40 Labs: Abnormal Lab Results - Last 24 Hours (Table) 08/22/22 Range/Units 06:40 WBC 14.16 H (4.50-10.00) X 10*3/uL MCV 98.1 H (80.0-97.0) fL MCH 32.6 H (27.0-32.0) pg Immature Gran # 0.07 H (0.00-0.04) X 10*3/uL Neutrophils # 10.77 H (1.80-7.70) X 10*3/uL Monocytes # 1.49 H (0.20-1.00) X 10*3/uL Eosinophils # 0.01 L (0.04-0.35) X 10*3/uL Assessment and Plan Assessment: status post left shoulder arthroplasty As per orthopedic surgery management Drug rash unclear which medicine caused it Improving with hydrocortisone cream GERD Resume PPI Hypertension Resume home BP meds Hemochromatosis Patient had a phlebotomy done 2 weeks ago 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
[2022-08-23] MEDS: HYDROcodone/APAP 7.5-325MG 1 EACH TAB PO PRN ×2 (01:58→08:36)
[2022-08-23] MEDS: LACTATED RINGERS 1,000 ML IV SCH (07:22)
[2022-08-23 07:38] VITALS: BP 118/72; PULSE 107; RESP 17; TEMP 98.3
[2022-08-23] MEDS: MAGNESIUM OXIDE 400 MG TAB PO SCH (08:35)
[2022-08-23] MEDS: ASPIRIN 325 MG TAB PO SCH (08:35)
[2022-08-23] MEDS: ONDANSETRON 4 MG/2 ML VIAL IVP PRN (08:35)
[2022-08-23] MEDS: METOPROLOL SUCCINATE (ER) 50 MG TAB.ER.24H PO SCH (08:35)
[2022-08-23] MEDS: PANTOPRAZOLE 40 MG TABLET PO SCH (08:35)
[2022-08-23] MEDS: LORATADINE 10 MG TAB PO SCH (08:35)
[2022-08-23] MEDS: SPIRONOLACTONE 25 MG TAB PO SCH (08:35)
--- NOTE | 2022-08-23 09:40 | P.ANPRN ---
Procedure Note - Anesthesia - Nerve Block Performed Left Interscalene Single Time Out Performed: Yes (730) Date of Procedure: 08/21/22 Procedure Start Time: :31 Procedure Stop Time: 07:36 Location of Patient: PreOp Indication: Acute Post-Operative Pain, Requested by Surgeon Specifically requested for management of pain by : Anthony Joshi Sedation Type: Sedate with meaningful contact maintained Preparation: Sterile Prep Position: Supine Catheter: None Needle Types: Pajunk Needle Gauge: 21 Ultrasound used to visualize needle placement: Yes Ultrasound used to observe medication spread: Yes Injectate: 0.5% Ropivacaine (see comment for volume) (30cc) Blood Aspirated: No Pain Paresthesia on Injection Noted: No Resistance on Injection: Normal Image Stored and Saved: Yes Events: Uneventful and Well Tolerated
--- NOTE | 2022-08-23 09:45 | P.PN ---
Subjective Progress Note Date: 08/23/22 Principal diagnosis: status post left total shoulder arthroplasty Patient is examined today at bedside, she is up resting in her hospital chair. Patient states that her pain is better controlled today. She is feeling a lot better, she does admit to some nausea today. She currently denies any headaches, lightheadedness, chest pain or shortness of breath. Objective - Vital Signs Vital signs: Vital Signs Temp 98.3 F 08/23/22 07:36 Pulse 107 H 08/23/22 07:36 Resp 17 08/23/22 07:36 BP 118/72 08/23/22 07:36 Pulse Ox 93 L 08/23/22 07:36 FiO2 Intake & Output 08/22/22 08/23/22 08/23/22 18:59 06:59 18:59 Other: Voiding Method Toilet # Voids 3 2 - Exam Left upper extremity: Postop bandages removed, Steri-Strips and incision or in proper position and condition. Mild ecchymosis and swelling is present in the extremity. Extension and flexion are intact at the elbow and wrist, she is moving her fingers with no difficulty. Sensory exam to light touch is intact about the extremity. Her radial and ulnar pulses 2+. - Labs CBC & Chem 7: 08/22/22 06:40 Labs: Abnormal Lab Results - Last 24 Hours (Table) 08/22/22 Range/Units 06:40 WBC 14.16 H (4.50-10.00) X 10*3/uL MCV 98.1 H (80.0-97.0) fL MCH 32.6 H (27.0-32.0) pg Immature Gran # 0.07 H (0.00-0.04) X 10*3/uL Neutrophils # 10.77 H (1.80-7.70) X 10*3/uL Monocytes # 1.49 H (0.20-1.00) X 10*3/uL Eosinophils # 0.01 L (0.04-0.35) X 10*3/uL Assessment and Plan Assessment: Postoperative day #2 status post left total shoulder arthroplasty Plan: Pain control, plan for discharge home on [place] 7.5 mg/325 mg. Will also prescribe Zofran for nausea DVT prophylaxis, patient normally takes 325 mg aspirin daily, she'll resume this Wound care instructions discussed, this including icing along with showering instructions Sling instructions were discussed, this to include times her she can take the sling off Medical recommendations Discharge planning: Patient stable for discharge home today Time with Patient: Less than 30
--- NOTE | 2022-08-23 09:49 | P.DS ---
Providers Date of admission: 08/21/22 06:03 Expected date of discharge: 08/23/22 Attending physician: Anthony Joshi Consults: 08/21/22 09:45 Consult Physician Routine Consulting Provider: Jamila Carvajal Consult Reason/Comments: Medical Management Do you want consulting provider notified?: Yes, Notify in am Primary care physician: Nancy Colunga Hospital Course: Date of admission: 08/21/2022 Date of discharge: 08/23/2022 Admission diagnosis: Status post left shoulder arthroplasty Discharge diagnosis: Same Attending physician: Dr. Joshi Surgical procedures: Left total shoulder arthroplasty Brief history: Patient is a 67-year-old female with a history of progressive primary left shoulder osteoarthritis. At this point patient has failed conservative treatment measures and has opted to proceed with a elective left total shoulder arthroplasty. Hospital course: Details of patient's surgery can be found in operative report. Patient tolerated the procedure well and was subsequently transported to orthopedic floor. Patient's orthopeidc and medical care was provided daily. Patient had daily laboratory tests performed for evaluation of overall blood counts. Patient had daily physical therapy to include strengthening range of motion as well as education with walker ambulation. Patient was treated with aspirin for their postoperative DVT prophylaxis during their inpatient stay. Patient was noted to have a relatively uneventful postoperative course. Patient reported satisfactory pain control with oral pain medications by postoperative day 2. Patient showed satisfactory progress with physical therapy. Patient moved steadily through the program and had no difficulty meeting the goals by postoperative day 2. Given patient's otherwise satisfactory course and having met physical therapy goals, plan is to discharge patient home on postoperative day 2. Discharge condition/disposition: Patient will be discharged home in stable condition. Discharge medications: Instructions are given on resumption of patient's normal daily medications per primary care recommendation, in addition patient will be prescribed [place] 7.5 mg/325 mg, senna S, Zofran 8 mg. Discharge instructions: 1. Wound care and infection precautions, keep incision dry and covered while showering, no lotions, creams, moisturizers. No soaking, tubs, pools, hottubs. Do not scrub over the incision. 2. Utilize arm sling 3. Ice and elevate when necessary. Do not exceed 20 minutes per hour with ice pack. 4. Utilize compression sleeve until seen at first follow up appointment. 7. Pain meds and anticoagulants per prescription. 8. Pain medication has potential to cause constipation. Increase oral fluid and fiber intake. Contact primary care provider if you have not had a bowel movement within 48 hours after discharge 10. Follow up in office at 2 weeks postop with Florencio Davies PA-C/Donnie Grace 11. Follow up with your primary care doctor 7-10 days after discharge. 12. Contact [facility] with any questions, . Procedures: Left total shoulder arthroplasty Patient Condition at Discharge: Good Plan - Discharge Summary Discharge Rx Participant: No New Discharge Prescriptions: New Sennosides/Docusate Sodium [Senna-S 8.6-50 mg Tablet] 1 each PO DAILY PRN #30 tablet PRN Reason: Constipation ondansetron HCL [Zofran] 8 mg PO Q12HR PRN #21 tab PRN Reason: Nausea HYDROcodone/APAP 7.5-325MG [S[place]abe 7.5] 1 each PO Q6HR PRN #28 tab PRN Reason: Pain No Action Loratadine [Claritin] 10 mg PO DAILY dexAMETHasone ORAL SOLUTION [Decadron Oral Solution] 10 mg PO Q8HR PRN PRN Reason: LICHEN PLANUS Ibuprofen [Motrin] 600 mg PO Q8HR PRN PRN Reason: Pain Metoprolol Succinate [Toprol XL] 50 mg PO DAILY Aspirin 325 mg PO DAILY Spironolactone 75 mg PO DAILY Magnesium 250 - 500 mg PO HS PRN PRN Reason: LEG CRAMPS Inulin/Chromium Picolinate [Fiber Gummies Chew] 1 each PO HS PRN PRN Reason: Constipation Omeprazole 20 mg PO DAILY Acetaminophen [Tylenol Extra Strength] 1,000 mg PO Q6H PRN PRN Reason: Pain Discharge Medication List Loratadine [Claritin] 10 mg PO DAILY 06/13/17 [History] Aspirin 325 mg PO DAILY 08/11/20 [History] Ibuprofen [Motrin] 600 mg PO Q8HR PRN 08/11/20 [History] Magnesium 250 - 500 mg PO HS PRN 08/11/20 [History] Metoprolol Succinate [Toprol XL] 50 mg PO DAILY 08/11/20 [History] Spironolactone 75 mg PO DAILY 08/11/20 [History] dexAMETHasone ORAL SOLUTION [Decadron Oral Solution] 10 mg PO Q8HR PRN 08/11/20 [History] Inulin/Chromium Picolinate [Fiber Gummies Chew] 1 each PO HS PRN 09/05/20 [History] Omeprazole 20 mg PO DAILY 08/17/22 [History] Acetaminophen [Tylenol Extra Strength] 1,000 mg PO Q6H PRN 08/21/22 [History] HYDROcodone/APAP 7.5-325MG [[place] 7.5] 1 each PO Q6HR PRN #28 tab 08/23/22 [Rx] Sennosides/Docusate Sodium [Senna-S 8.6-50 mg Tablet] 1 each PO DAILY PRN #30 tablet 08/23/22 [Rx] ondansetron HCL [Zofran] 8 mg PO Q12HR PRN #21 tab 08/23/22 [Rx] Follow up Appointment(s)/Referral(s): Donnie Garrett, OCTAVIO [PHYSICIAN SCRAPE GATHERER] - 2 Weeks Activity/Diet/Wound Care/Special Instructions: Orthopedic discharge instructions: 1. Pain medication as needed 2. Resume aspirin 325 mg daily 3. Keep incision covered and dry while showering 4. Utilize arm sling 5. Ice the extremity for symptomatic relief 6. Plan for Follow-Up at [facility] in 2 Weeks Discharge Disposition: HOME SELF-CARE
== END 2022-08-23 11:16 | disposition home or self-care (01) | DRG 483 ==
LOC: 2ORMAIN 06:03 → 4SSUR 13:16
PROVIDERS: ADMIT Orthopaedic Surgery; ATTEND Orthopaedic Surgery
PROC: 0RRK0JZ Replacement of Left Shoulder Joint with Synthetic Substitute, Open Approach (ICD-10-PCS; principal; 2022-08-21 07:45)
PROC: 3E0T3BZ Introduction of Anesthetic Agent into Peripheral Nerves and Plexi, Percutaneous Approach (ICD-10-PCS; 2022-08-23)
DX: M19.012 Primary osteoarthritis, left shoulder (principal); I10 Essential (primary) hypertension; E83.119 Hemochromatosis, unspecified; L27.0 Generalized skin eruption due to drugs and medicaments taken internally; M79.7 Fibromyalgia; M81.0 Age-related osteoporosis without current pathological fracture; M75.82 Other shoulder lesions, left shoulder; M25.712 Osteophyte, left shoulder; G89.18 Other acute postprocedural pain; G47.33 Obstructive sleep apnea (adult) (pediatric); R11.0 Nausea; Z79.899 Other long term (current) drug therapy; Z79.82 Long term (current) use of aspirin; Z88.8 Allergy status to other drugs, medicaments and biological substances; Z91.048 Other nonmedicinal substance allergy status; Z88.0 Allergy status to penicillin; Z91.018 Allergy to other foods; Z91.013 Allergy to seafood; Z88.2 Allergy status to sulfonamides; Z91.040 Latex allergy status; Z88.5 Allergy status to narcotic agent
CPT/HCPCS: 64415; 76942; 85025; 85610; 88300

== ENCOUNTER → 2024-06-10 | Outpatient (CLI) | payer BC ==
[2024-06-11 03:46] LABS: T4, Free (Free Thyroxine) 1.35 ng/dL (0.80-1.80)
[2024-06-11 03:47] LABS: ALT 18 U/L (8-44); AST 27 U/L (13-35); Albumin 4.1 g/dL (3.8-4.9); Albumin/Globulin Ratio 1.86 Ratio (1.60-3.17); Alkaline Phosphatase 82 U/L (41-126); BUN/Creat Ratio 23.22 Ratio (12.00-20.00); Blood Urea Nitrogen 20.9 mg/dL (9.0-27.0); Calcium 9.7 mg/dL (8.7-10.3); Carbon Dioxide 20.6 mmol/L (21.6-31.8); Chloride 105 mmol/L (96-109); Globulin 2.2 g/dL (1.6-3.3); Glucose 100 mg/dL (70-110); Potassium 4.8 mmol/L (3.5-5.5); Sodium 139 mmol/L (135-145); Total Bilirubin 0.4 mg/dL (0.3-1.2); Total Protein 6.3 g/dL (6.2-8.2)
== END | disposition home or self-care (01) ==
LOC: LABWHC1 15:06
PROVIDERS: ATTEND Internal Medicine Endocrinology, Diabetes & Metabolism
DX: E87.6 Hypokalemia (principal)
CPT/HCPCS: 36415; 80053; 84439; 84443; 86376

== ENCOUNTER → 2024-10-26 | Outpatient (CLI) | payer MEDICARE | END | disposition home or self-care (01) | LOC: LABPAT 13:22 | PROVIDERS: ATTEND Orthopaedic Surgery | DX: Z01.818 Encounter for other preprocedural examination (principal); Z22.322 Carrier or suspected carrier of Methicillin resistant Staphylococcus aureus; M19.011 Primary osteoarthritis, right shoulder | CPT/HCPCS: 87070 ==

== ENCOUNTER 2024-11-03 10:36 | Day surgery (SDC) | payer MEDICARE ==
[2024-10-27 10:30] VITALS: BMI 35.1
--- NOTE | 2024-11-02 08:43 | P.HPOR ---
History of Present Illness H&P Date: 11/02/24 Chief Complaint: Right shoulder pain The patient is a 69-year-old [id number] female who presents with progressive right shoulder pain for the past couple years. She notes pain with overhead activity and at night. She's tried home exercises, medications along with activity modifications without much relief. She has daily pain that limits her. Review of Systems Per HPI Past Medical History Past Medical History: Blood Disorder, Fibromyalgia, GERD/Reflux, Hyperlipidemia, Hypertension, Osteoarthritis (OA), Skin Disorder, Sleep Apnea/CPAP/BIPAP Additional Past Medical History / Comment(s): HX TACHYCARDIA, LICHEN PLANUS (MOUTH), HYPOGLYCEMIA, USES C-PAP MACHINE, SHE SEES DR PERRIN FOR ADRENAL GLANDS. HEMOCHROMATOSIS-STATES SHE CLOTS EASILY. c/o MUSCLE SPASMS, polycythemia History of Any Multi-Drug Resistant Organisms: None Reported Past Surgical History: Section, Heart Catheterization, Hysterectomy, Joint Replacement, Orthopedic Surgery Additional Past Surgical History / Comment(s): BENIGN TUMOR RT ANKLE, Bilat TOTAL KNEE, LEFT KNEE ARTHROSCOPY. REPAIR OF RT LITTLE FINGER NEAR AMPUTATION. COLONOSCOPY,BILAT CTR, HEART CATH AUG 2018 ([facility]- DR VILLANUEVA),. left shoulder sx Past Anesthesia/Blood Transfusion Reactions: No Reported Reaction, Family History of Problems w/ Anesthesia Additional Past Anesthesia/Blood Transfusion Reaction / Comment(s): daughter hysterical and confused. Smoking Status: Never smoker - Past Family History Mother Family Medical History: Fibromyalgia Additional Family Medical History / Comment(s): arthritis Father Family Medical History: Cancer, Diabetes Mellitus, Hypertension, Renal Disease Additional Family Medical History / Comment(s): heart problems, mult MA, prostate cancer Medications and Allergies Home Medications Medication Instructions Recorded Confirmed Type Aspirin 325 mg PO DAILY 08/11/20 10/27/24 History Magnesium 250 - 500 mg PO HS PRN 08/11/20 10/27/24 History Metoprolol Succinate [Toprol XL] 50 mg PO DAILY 08/11/20 10/27/24 History dexAMETHasone .ORAL SOLUTION 10 mg PO Q8HR PRN 08/11/20 10/27/24 History [Decadron Oral Solution] Inulin/Chromium Picolinate [Fiber 1 each PO HS PRN 09/05/20 10/27/24 History Gummies Chew] Omeprazole 20 mg PO DAILY 08/17/22 10/27/24 History Acetaminophen [Tylenol Extra 1,000 mg PO Q6H PRN 08/21/22 10/27/24 History Strength] HYDROcodone/APAP 7.5-325MG [[place] 1 each PO Q6HR PRN #28 tab 08/23/22 10/27/24 Rx 7.5] Sennosides/Docusate Sodium 1 each PO DAILY PRN #30 tablet 08/23/22 10/27/24 Rx [Senna-S 8.6-50 mg Tablet] Cetirizine HCl [Zyrtec] 10 mg PO DAILY 10/27/24 10/27/24 History Cyclobenzaprine [Flexeril] 10 mg PO TID PRN 10/27/24 10/27/24 History Melatonin 6 mg PO HS 10/27/24 10/27/24 History Rosuvastatin Calcium 10 mg PO DAILY 10/27/24 10/27/24 History Spironolactone 100 mg PO DAILY 10/27/24 10/27/24 History Allergies Allergy/AdvReac Type Severity Reaction Status Date / Time amlodipine [From [facility]] Allergy Severe fluid Verified 10/27/24 10:08 retention, swelling 5 # fluid gain nickel Allergy Unknown 2 Verified 10/27/24 10:08 daughters have nickel allergy -does not want. amoxicillin Allergy Rash/Hives Verified 10/27/24 10:08 cigarette smoke Allergy migraines Verified 10/27/24 10:08 perfume Allergy migraines Verified 10/27/24 10:08 pollen extracts Allergy alg testing Verified 10/27/24 10:08 shellfish derived [Shellfish] Allergy alg testing Verified 10/27/24 10:08 soy Allergy bloating/alg Verified 10/27/24 10:08 testing Sulfa (Sulfonamide Allergy Rash/Hives Verified 10/27/24 10:08 Antibiotics) wheat Allergy bloating/alg Verified 10/27/24 10:08 testing isosorbide [From Imdur] AdvReac Severe MIGRAINE Verified 10/27/24 10:08 nitroglycerin AdvReac Severe MIGRAINE Verified 10/27/24 10:08 WITH NITRO PASTE Latex, Natural Rubber AdvReac Itching Verified 10/27/24 10:08 meloxicam [From Mobic] AdvReac Abdominal Verified 10/27/24 10:08 Pain Physical Examination - Shoulder right Tenderness with palpation: anterior, bicipital groove Pain: with abduction, with forward flexion ROM: abduction: 140 degrees ROM: internal rotation: lower lumbar ROM: external rotation: 70 degrees Crepitus with motion: Yes Strength: abduction: 5/5 Strength: forward flexion: 5/5 Strength: external rotation: 5/5 Tests: internal impingement tests: positive, external impingment tests: positive Results The patient is a well-developed well-nourished female approximately 5 foot 2, 191 pounds of endomorphic habitus. HEENT exam is nonfocal, neck is supple. On examination of the right shoulder she's tender over the anterior subacromial space and the anterior glenohumeral joint. She has moderate crepitus. Impingement test, Neer test, and speed tests are positive. Her distal neurovascular exam appears intact right upper extremity. - Diagnostic results Shoulder x-ray: image reviewed (X-rays of the right shoulder obtained in the office show severe glenohumeral joint space narrowing with subchondral sclerosis and [id number] changes. Multiple loose bodies are noted.) Assessment and Plan Assessment: Severe right glenohumeral joint osteoarthrosis Plan: I talked to the patient at length regarding her condition along with treatment options. At this point she's quite symptomatic having pain related to her right shoulder osteoarthrosis despite conservative measures. After a thorough discussion she opts to proceed with surgery. We will plan to proceed with right total shoulder arthroplasty. Risks and benefits were discussed at length in layman's terms. We will institute DVT prophylaxis postoperatively.
[~2024-11-03 10:36] MED LIST changes: +TRANEXAMIC 1,000 MG/100ML-NACL 1,000 MG in SALINE 1 100ML.BAG IVPB PRN; -TRANEXAMIC ACID IN NACL,ISO-OS 1,000 MG in SALINE 1 100ML.BAG IVPB PRN; -VANCOMYCIN 1,250 MG in SODIUM CHLORIDE 0.9% 250 ML IVPB PRN
[2024-11-03] MEDS: LACTATED RINGERS 1,000 ML IV SCH (11:58)
[2024-11-03] MEDS: DEXAMETHASONE SOD PHOSPHATE 4 MG/ML 1 ML VIAL IV ONE (11:59)
[2024-11-03] MEDS: ONDANSETRON 4 MG/2 ML VIAL IVP ONE (11:59)
[2024-11-03] MEDS: VANCOMYCIN 1,250 MG in SODIUM CHLORIDE 0.9% 250 ML IVPB PRN (12:03)
[2024-11-03] MEDS: IV FLUID CONTINUATION 1,000 ML IV ONE (12:06)
[2024-11-03] MEDS: MIDAZOLAM 2 MG/2 ML VIAL IV ONE (12:40)
[2024-11-03] MEDS ORDERED: ROCURONIUM 10 MG/ML (5 ML VIAL) IV ONE (13:13)
[2024-11-03] MEDS ORDERED: GLYCOPYRROLATE 0.2 MG/ML 2 ML VIAL ONE (13:13)
[2024-11-03] MEDS ORDERED: SUCCINYLCHOLINE CHLORIDE 200 MG/10 ML VIAL IV ONE (13:13)
[2024-11-03] MEDS ORDERED: PHENYLEPHRINE-0.9% NACL SYG 1,000 MCG/10 ML SYRINGE ONE (13:13)
[2024-11-03] MEDS ORDERED: MIDAZOLAM 2 MG/2 ML VIAL ONE (13:13)
[2024-11-03] MEDS ORDERED: PROPOFOL 10 MG/ML 20 ML VIAL IV ONE (13:13)
[2024-11-03] MEDS ORDERED: TRANEXAMIC 1,000 MG/100ML-NACL PREMIX BAG ONE (13:13)
[2024-11-03] MEDS ORDERED: NEOSTIGMINE 1 MG/ML 10 ML VIAL ONE (13:13)
[2024-11-03] MEDS ORDERED: ROPIVACAINE 5 MG/ML 30 ML VIAL ONE (13:13)
[2024-11-03] MEDS ORDERED: fentaNYL (PF) 50 MCG/ML 2 ML AMP ONE (13:13)
[2024-11-03] MEDS ORDERED: LIDOCAINE 1% INJ 10MG/ML (20 ML MDV) ONE (13:13)
[2024-11-03] MEDS ORDERED: DEXAMETHASONE SOD PHOSPHATE 4 MG/ML 1 ML VIAL ONE (13:13)
[2024-11-03] MEDS: ceFAZolin 1,000 MG in SODIUM CHLORIDE 0.9% 1,000 ML IRRIGATION ONE (13:27)
--- NOTE | 2024-11-03 14:45 | P.ANPRN ---
Procedure Note - Anesthesia - Nerve Block Performed Right Interscalene Single Time Out Performed: Yes Date of Procedure: 11/03/24 Procedure Start Time: 12:39 Procedure Stop Time: 12:44 Location of Patient: PreOp Indication: Acute Post-Operative Pain, Requested by Surgeon Sedation Type: Sedate with meaningful contact maintained Preparation: Sterile Prep Position: Supine Needle Types: Pajunk Needle Gauge: 21 Ultrasound used to visualize needle placement: Yes Ultrasound used to observe medication spread: Yes Blood Aspirated: No Pain Paresthesia on Injection Noted: No Resistance on Injection: Normal Image Stored and Saved: Yes Events: Uneventful and Well Tolerated (Ropivacaine 0.5% 20 cc plus dexamethasone 4 mg)
[2024-11-03] MEDS: LACTATED RINGERS 1,000 ML IV ONE (15:13)
[2024-11-03] MEDS ORDERED: SENNOSIDES-DOCUSATE SODIUM 1 EACH TAB PO PRN (15:16)
[2024-11-03] MEDS ORDERED: HYDROcodone/APAP 5-325MG 1 EACH TAB PO PRN (15:16)
--- NOTE | 2024-11-03 15:36 | P.OP ---
Date of Procedure: 11/03/24 Preoperative Diagnosis: Right severe glenohumeral joint osteoarthrosis Postoperative Diagnosis: Same Procedure(s) Performed: Right total shoulder arthroplasty Implants: Arthrex 39 x 18 mm humeral head, 39 mm trunnion, small cage screw, small vault lock glenoid component. Anesthesia: LULU, [facility] Surgeon: Anthony Joshi Mate Fishing Vessel #1: Donnie Garrett Estimated Blood Loss (ml): 150 Pathology: none sent Condition: stable Disposition: PACU Indications for Procedure: The patient is a 69-year-old female who presents with progressive right shoulder pain secondary to osteoarthrosis despite conservative measures. A discussion of the risks and benefits of operative intervention versus continued conservative measures was made with the patient. She opted proceed with surgery. Operative risks include infection, neurovascular injury, development of blood clots, possible component loosening/failure and possible need for subsequent procedures was discussed. Informed consent was obtained. Operative Findings: As below Description of Procedure: The patient was brought to the operating room, and after induction of general anesthesia was placed in the beachchair position. The bony prominences were appropriately padded. The right upper extremity was prepped and draped in normal fashion. A deltopectoral incision was then made lateral to the coracoid process extending approximately 12 cm. The skin was incised sharply. Subcutaneous tissues were divided bluntly. Electrocautery was used for hemostasis. The deltopectoral interval was identified and the cephalic vein gently retracted laterally with the deltoid. Subdeltoid adhesions were bluntly dissected. A self-retaining retractor was placed. The clavipectoral fascia was opened and the conjoined tendon gently retracted medially. The upper one third of the pectoralis major was released to help facilitate exposure. The biceps was identified and the sheath was opened. The rotator interval was opened. The biceps was tenotomized and allowed to retract distally. A subscapularis peel was performed and this was tagged with #2 Ethibond suture.. The humeral head was then exposed releasing the capsule off the humeral neck. The shoulder was gently dislocated. The cutting guide was placed planning on a cut flush with the rotator cuff insertion and 30 of retroversion. The cutting block was pinned in place. The humeral head cut was then made. This measured most appropriately at 39 x 18 mm. Residual inferior osteophytes were carefully removed flush with the [place] cortical bone. The cut surface was prepared after sizing it at 39 mm with a trunnion. The reamer was inserted to the appropriate depth. A protector plate was placed. A posterior glenoid retractor was placed. The glenoid was then exposed releasing the labrum from the 12-6 o'clock position. Residual labral tissue was removed. The glenoid sized most appropriately at a small. A guidewire was then inserted planning on the appropriate version. The glenoid was reamed down to a bleeding bony surface. The central peg hole was drilled. The alignment guide was placed in the peripheral peg holes drilled. The inferior keel was completed. The trial glenoid was placed and was fully seated. There was good anterior to posterior and inferior to superior fit. The trial component was removed. Pulsatile lavage was utilized. The bony surface was dried. The peripheral peg holes/keel were then pressurized with cement utilizing a syringe. Excess cement was removed. A central pegged glenoid was then placed and was fully seated. This was gently impacted. This was held in place until the cement had sufficiently hardened. Attention was then paid again towards preparing the proximal humerus. The central guide was placed and a 39 mm trunnion was gently impacted. Previously I did measured for a small cage screw. This was then inserted and appropriately tensioned. A trial 39 x 18 humeral head was placed. The shoulder was gently reduced. It was taken through a range of motion. It was felt to be stable in flexion and extension with internal and external rotation. I felt there was adequate pentecostalism of soft tissue tension. The shoulder was gently dislocated. The trial humeral head were then removed. 2 medial anchors were placed in the lesser tuberosity with good purchase. The fiber tape was then passed through the subscapularis for later repair. The rotator interval was closed with #2 fiber tape. A lateral row was created crisscrossing the previously placed fiber tapes just lateral to the bicipital groove. Pulsatile lavage was utilized. She had minimal drainage at this point therefore a deep drain was not placed. The deltopectoral interval was closed with interrupted 2- 0 Vicryl sutures. The subcu tissues were reapproximated with interrupted 2-0 Vicryl sutures. The skin was reprepped with 3-0 subcuticular Prolene suture. Steri-Strips were applied. A sterile dressing was applied in addition to a sling. The patient was then awoken from general anesthesia and transferred to recovery room in good condition. Blood loss was estimated at 150 mL. No complications were incurred. Sponge and needle counts were correct at the end of the case. BARBARA Hubbard assisted during the major components the case to include positioning, exposure, resection, implantation, and closure.
[2024-11-03] MEDS: HYDROmorphone 0.5 MG/0.5 ML SYRINGE IVP PRN ×2 (15:57→23:13)
--- NOTE | 2024-11-03 16:45 | XR ---
EXAMINATION TYPE: XR shoulder limited RT DATE OF EXAM: 11/03/2024 4:04 PM COMPARISON: None. CLINICAL INDICATION: Female, 69 years old with history of s/p right total shoulder arthroplasty, TECHNIQUE: Single AP view(s) obtained. FINDINGS: Left shoulder humeral head prosthesis has been placed. Postsurgical soft tissue changes are evident. No acute fractures are evident. IMPRESSION: 1. No acute fracture post humeral head replacement. [facility], Workstation: [facility], 11/03/2024 4:42 PM
[2024-11-03] MEDS: MAGNESIUM OXIDE 400 MG TAB PO STA (17:24)
[2024-11-03] MEDS: hydrOXYzine pamoate 25 MG CAP PO PRN (17:25)
[2024-11-03 20:40] LABS: Basophils % (A) 0 %; Eosinophils % (A) 0 %; HCT 52.2 % (34.0-46.0); HGB 17.3 gm/dL (11.4-16.0); Lymphocytes # (A) 0.6 k/uL (1.0-4.8); Lymphocytes % (A) 4 %; MCH 33.3 pg (25.0-35.0); MCHC 33.1 g/dL (31.0-37.0); MCV 100.7 fL (80.0-100.0); Mean Platelet Volume 6.9; Monocytes # (A) 0.4 k/uL (0-1.0); Monocytes % (A) 2 %; Neutrophils # (A) 15.7 k/uL (1.3-7.7); Neutrophils % (A) 94 %; Platelet Count 219 k/uL (150-450); RBC 5.18 m/uL (3.80-5.40); RDW 12.4 % (11.5-15.5); WBC 16.8 k/uL (3.8-10.6)
[2024-11-03] MEDS: HYDROcodone/APAP 7.5-325MG 1 EACH TAB PO PRN (21:42)
[2024-11-03] MEDS: MELATONIN 3 MG TABLET PO SCH (21:42)
--- NOTE | 2024-11-03 22:07 | P.CONS ---
History of Present Illness - Reason for Consult Consult date: 11/03/24 Medical management Requesting physician: Anthony Joshi - Chief Complaint Right shoulder pain - History of Present Illness Patient is a 69-year-old female with past medical history of osteoarthritis, left shoulder surgery, hyperlipidemia, hypertension, GERD, NIKKI is seen today in medical consultation for medical management post surgery. Shehad a longstanding history of right shoulder pain. The pain has been progressively getting worse over time. She mentions her pain is aggravated by overhead activity and is worse especially at night. She is right hand dominant and the pain is now limiting her daily activity. She has tried over the counter pain medications like tylenol and motrin with no relief. She also tried home exercises as well as activity modification but nothing helped with her symptoms. She was scheduled for the right total shoulder arthroplasty today which she underwent uneventfully. Postoperative at the time of interview, she reports pain in the right arm and tingling sensation in the right hand fingers. She has not had a bowel movement or passed flatus after the surgery. She does report having chronic constipation. She also denies any oxygen use at home. Denies fever, chills, chest pain, shortness of breath, cough, chest pain, palpitations, abdominal pain, nausea, vomiting, hematuria, dysuria, hematochezia, melena, headache, slurred speech. Vitals on admission T 97 F, RI 86 bpm, RR 18, BP 130/69, O2 sat 98% on room air. Labs show WBC 16.8, hemoglobin 17.3, hematocrit 52.2, MCV 100.7 Review of systems: Pertinent positives and negatives as discussed in HPI, a complete review of systems was performed and all other systems are negative. PMH: GERD, hyperlipidemia, hypertension, OA, NIKKI, blood disorder PSH: Heart catheterization, hysterectomy, bilateral total knee, section FMH: Fibromyalgia, arthritis Social history: Tobacco: Never smoker Alcohol: Denies use Recreational drugs: Denies use Travel: No recent travel history Sick contacts: None Physical examination: Vital signs reviewed General: nontoxic, no distress, appears at stated age, obese Derm: warm, dry, intact Head: atraumatic, normocephalic, symmetric Eyes: EOMI, anicteric sclera Mouth: no lip lesion, mucus membranes moist Cardiovascular: S1 S2 reg, no murmur Lungs: CTA bilateral, no rhonchi, no rales, no accessory muscle use Abdominal: soft, non-tender to palpation Extremities: No edema, right shoulder bandaged and right arm in a sling, ROM active and passive intact of right hand and forearm Neuro: Alert, Oriented, Gross neurological examination did not reveal any focal deficits. Psych: well appearing, appropriate affect Assessment/Plan: Patient is a 69-year-old female with past medical history of osteoarthritis, left shoulder surgery, hyperlipidemia, GERD, NIKKI presented with progressively worsening right shoulder pain over the past couple of years and is status post right total shoulder arthroplasty today. Medicine has been consulted for medical management. #. Hypertension -Continue home meds metoprolol 50 mg p.o. daily and spironolactone 100 mg p.o. daily #. History of CAD #. Hyperlipidemia -Continue home med aspirin 325 mg PO daily -Continue Atorvastatin 20 mg PO daily #.Elevated hemoglobin, possible due to hx of hereditary hemochromatosis vs polycythemia -Hb 17.3 -Continue Aspirin 325 mg PO daily -Monitor CBC #. Insomnia -Continue home med melatonin 6 mg p.o. at bedtime #. Fibromyalgia and muscle spasm Continue Cyclobenzaprine 10 mg PO TID PRN and magnesium 250 mg PO HS #. GERD -Continue pantoprazole 40 mg p.o. daily #. Obstructive sleep apnea -Continue using CPAP at night time #. Lichen Planus -Continue home med Dexamethasone oral solution 10 mg PO Q8HR #. Allergic rhinitis -Continue home med Cetrizine 10 mg PO daily #. Reactive leukocytosis -Secondary to surgery -Monitor CBC #. Right severe glenohumeral joint osteoarthritis #. S/p Right total shoulder arthroplasty 11/03/24 -Right shoulder x-ray after the surgery shows no acute fracture post humeral head replacement -Currently on acetaminophen 1000 mg p.o. once as needed, [place] 5-325 p.o. every 6 hours as needed(PS 1 to 5), [place] 7.5-325 p.o. every 6 hours as needed (PS 6- 10), Dilaudid 0.5 mg IVP Q5M as needed, Dilaudid 0.25 mg IVP every 3 hours as needed (PS 4-6), Dilaudid 0.5 mg IVP every 3 hours as needed (PS 7-10) for pain management per primary surgical team -Currently on Cafezolin 2 g IVPB every 8 hours, total 2 bags and Tranexamic acid #. Nausea and anxiety -Continue ondansetron 4 mg IVP daily as needed -Continue hydroxyzine 25 mg p.o. every 6 hours as needed #. Constipation -Continue Senokot to each p.o. at bedtime as needed DVT prophylaxis: Per primary surgical team GI prophylaxis: Pantoprazole 40 mg PO daily Past Medical History Past Medical History: Blood Disorder, Fibromyalgia, GERD/Reflux, Hyperlipidemia, Hypertension, Osteoarthritis (OA), Skin Disorder, Sleep Apnea/CPAP/BIPAP Additional Past Medical History / Comment(s): HX TACHYCARDIA, LICHEN PLANUS (MOUTH), HYPOGLYCEMIA, USES C-PAP MACHINE, SHE SEES DR PERRIN FOR ADRENAL GLANDS. HEMOCHROMATOSIS-STATES SHE CLOTS EASILY. c/o MUSCLE SPASMS, polycythemia History of Any Multi-Drug Resistant Organisms: None Reported Past Surgical History: Section, Heart Catheterization, Hysterectomy, Joint Replacement, Orthopedic Surgery Additional Past Surgical History / Comment(s): BENIGN TUMOR RT ANKLE, Bilat TOTAL KNEE, LEFT KNEE ARTHROSCOPY. REPAIR OF RT LITTLE FINGER NEAR AMPUTATION. COLONOSCOPY,BILAT CTR, HEART CATH AUG 2018 ([facility]- DR VILLANUEVA),. left shoulder sx Past Anesthesia/Blood Transfusion Reactions: No Reported Reaction, Family History of Problems w/ Anesthesia Additional Past Anesthesia/Blood Transfusion Reaction / Comm: daughter hysterical and confused. Smoking Status: Never smoker - Past Family History Mother Family Medical History: Fibromyalgia Additional Family Medical History / Comment(s): arthritis Father Family Medical History: Cancer, Diabetes Mellitus, Hypertension, Renal Disease Additional Family Medical History / Comment(s): heart problems, mult [place], prostate cancer Medications and Allergies Home Medications Medication Instructions Recorded Confirmed Type Aspirin 325 mg PO DAILY 08/11/20 11/03/24 History Magnesium 250 - 500 mg PO HS PRN 08/11/20 11/03/24 History Metoprolol Succinate [Toprol XL] 50 mg PO DAILY 08/11/20 11/03/24 History dexAMETHasone .ORAL SOLUTION 10 mg PO Q8HR PRN 08/11/20 11/03/24 History [Decadron Oral Solution] Inulin/Chromium Picolinate [Fiber 1 each PO HS PRN 09/05/20 11/03/24 History Gummies Chew] Omeprazole 20 mg PO DAILY 08/17/22 11/03/24 History Acetaminophen [Tylenol Extra 1,000 mg PO Q6H PRN 08/21/22 11/03/24 History Strength] HYDROcodone/APAP 7.5-325MG [[place] 1 each PO Q6HR PRN #28 tab 08/23/22 11/03/24 Rx 7.5] Sennosides/Docusate Sodium 1 each PO DAILY PRN #30 tablet 08/23/22 11/03/24 Rx [Senna-S 8.6-50 mg Tablet] Cetirizine HCl [Zyrtec] 10 mg PO DAILY 10/27/24 11/03/24 History Cyclobenzaprine [Flexeril] 10 mg PO TID PRN 10/27/24 11/03/24 History Melatonin 6 mg PO HS 10/27/24 11/03/24 History Rosuvastatin Calcium 10 mg PO DAILY 10/27/24 11/03/24 History Spironolactone 100 mg PO DAILY 10/27/24 11/03/24 History Allergies Allergy/AdvReac Type Severity Reaction Status Date / Time amlodipine [From Norvasc] Allergy Severe fluid Verified 11/03/24 11:40 retention, swelling 5 # fluid gain nickel Allergy Unknown 2 Verified 11/03/24 11:40 daughters have nickel allergy -does not want. amoxicillin Allergy Rash/Hives Verified 11/03/24 11:40 ceftriaxone [From Rocephin] Allergy Rash/Hives Verified 11/03/24 11:59 cigarette smoke Allergy migraines Verified 11/03/24 11:40 perfume Allergy migraines Verified 11/03/24 11:40 pollen extracts Allergy alg testing Verified 11/03/24 11:40 shellfish derived [Shellfish] Allergy alg testing Verified 11/03/24 11:40 soy Allergy bloating/alg Verified 11/03/24 11:40 testing Sulfa (Sulfonamide Allergy Rash/Hives Verified 11/03/24 11:40 Antibiotics) wheat Allergy bloating/alg Verified 11/03/24 11:40 testing isosorbide [From Imdur] AdvReac Severe MIGRAINE Verified 11/03/24 11:40 nitroglycerin AdvReac Severe MIGRAINE Verified 11/03/24 11:40 WITH NITRO PASTE Latex, Natural Rubber AdvReac Itching Verified 11/03/24 11:40 meloxicam [From [facility]] AdvReac Abdominal Verified 11/03/24 11:40 Pain Physical Exam Vitals: Vital Signs Temp Pulse Pulse Resp BP BP Pulse Ox 11/03/24 18:00 55 L 16 124/59 93 L 11/03/24 17:30 52 L 16 121/58 96 11/03/24 17:15 72 16 127/61 93 L 11/03/24 17:00 55 L 16 119/60 93 L 11/03/24 16:45 67 16 122/58 95 11/03/24 16:33 53 L 16 118/57 94 L 11/03/24 16:18 50 L 16 128/59 95 11/03/24 16:03 58 L 16 120/56 94 L 11/03/24 15:48 67 16 142/72 94 L 11/03/24 15:33 97 F L 92 16 142/75 93 L 11/03/24 12:48 62 18 138/66 93 L 11/03/24 11:38 97.0 F L 86 18 130/69 98 Intake and Output 11/03/24 11/03/24 11/03/24 06:59 14:59 22:59 Intake Total 601 0 Output Total 150 Balance 451 0 Intake: IV 601 0 Output: Estimated Blood Loss 150 Other: Weight 87.4 kg Results CBC & Chem 7: 11/03/24 20:19
[2024-11-03] MEDS: CYCLOBENZAPRINE 10 MG TAB PO PRN (22:08)
[2024-11-03] MEDS: MAGNESIUM OXIDE 400 MG TAB PO PRN (22:12)
[2024-11-03 22:49] VITALS: RESP 18
[2024-11-04] MEDS ORDERED: DEXAMETHASONE SOD PHOSPHATE 10 MG/ML 1 ML VIAL PO PRN
[2024-11-04 02:43] VITALS: TEMP 98.2
[2024-11-04] MEDS: ONDANSETRON 4 MG/2 ML VIAL IVP PRN (07:02)
[2024-11-04 09:29] LABS: African American GFR (CKD) 88 (>60 ml/min/1.73 sqM); Anion Gap 9 mmol/L; Blood Urea Nitrogen 21 mg/dL (7-17); Calcium 9.3 mg/dL (8.4-10.2); Carbon Dioxide 24 mmol/L (22-30); Chloride 98 mmol/L (98-107); Glucose 160 mg/dL (74-99); Non-African American GFR(CKD) 77 (>60 ml/min/1.73 sqM); Potassium 4.4 mmol/L (3.5-5.1); Sodium 131 mmol/L (137-145)
[2024-11-04 09:31] LABS: HGB 15.4 gm/dL (11.4-16.0); MCH 31.6 pg (25.0-35.0); MCHC 32.7 g/dL (31.0-37.0); MCV 96.4 fL (80.0-100.0); Platelet Count 269 k/uL (150-450); RBC 4.88 m/uL (3.80-5.40); RDW 12.2 % (11.5-15.5); WBC 16.4 k/uL (3.8-10.6)
[2024-11-04] MEDS: ATORVASTATIN 20 MG TAB PO SCH (09:46)
[2024-11-04] MEDS: METOPROLOL SUCCINATE (ER) 50 MG TAB.ER.24H PO SCH (09:46)
[2024-11-04] MEDS: LORATADINE 10 MG TAB PO SCH (09:46)
[2024-11-04] MEDS: SENNOSIDES-DOCUSATE SODIUM 1 EACH TAB PO SCH (09:46)
[2024-11-04] MEDS: SPIRONOLACTONE 25 MG TAB PO SCH (09:46)
[2024-11-04] MEDS: MAGNESIUM OXIDE 400 MG TAB PO SCH (09:46)
[2024-11-04] MEDS: ASPIRIN 325 MG TAB PO SCH (09:46)
[2024-11-04] MEDS: HYDROmorphone 0.5 MG/0.5 ML SYRINGE IVP PRN (09:50)
--- NOTE | 2024-11-04 10:12 | P.PN ---
Subjective Progress Note Date: 11/04/24 Hospital course: Patient is a very pleasant 69-year-old female with a past medical history of fibromyalgia, hypertension, hyperlipidemia, and obstructive sleep apnea CPAP dependent nightly. She is currently admitted under orthopedic surgery team status post right total shoulder arthroplasty completed secondary to severe osteoarthrosis of right shoulder. Surgical procedure was completed by Dr. Joshi. We have been consulted for medical management throughout patient's hospitalization. Physical exam: Patient seen and fully evaluated at bedside. She is currently postoperative day 1 and reports currently experiencing uncontrolled right shoulder pain accompanied by tingling sensation throughout her right hand and fingers. Patient reports she has been making a fist and moving right hand as instructed by orthopedic surgery team, but states tingling remains. She also reports an episode of nausea this morning which was improved after administration of Zofran. She denies any episodes of vomiting and is tolerating oral intake well. Patient denies having any headache, lightheadedness, dizziness, chest pain, palpitations, shortness of breath, or any other complaints at this time. Vital signs reviewed and stable. General: Nontoxic, no distress and appears stated age. Derm: Skin warm and dry, normal coloration for ethnicity. Head: Atraumatic, normocephalic and symmetric. Eyes: EOM's intact, no lid lag, and anicteric sclera Mouth: no lip lesions, mucus membranes moist Cardiovascular: regular rate and rhythm with normal S1S2, no murmur, positive posterior tibial pulses bilaterally, and cap refill < 2 seconds. Lungs: Respirations even, regular, and unlabored on room air. Lungs CTA bilaterally, no rhonchi, no rales, no wheezing, and no accessory muscle usage. Abdominal: soft, nontender to palpation, no guarding, no appreciable organomegaly Ext: No gross muscle atrophy, no edema, no contractures. Movement and sensation intact. Postsurgical dressing in place to right shoulder and right arm in sling. Ice pack in place. Neuro: Speech clear, face symmetrical and CN II-XII grossly intact with no noted focal neuro deficits Psych: Alert and oriented to person, place, time, and situation. Appropriate and pleasant affect. Assessment and Plan of Care: Status post right total shoulder arthroplasty -Management per primary admittingorthopedic surgery team including DVT prophylaxis, pain management, wound/dressing management, weightbearing of right upper extremity, and PT/OT. -Currently DVT prophylaxis with aspirin 325 mg daily. Hypertension -Monitor vital signs and continue daily medication regimen with metoprolol 50 mg daily and Aldactone 100 mg daily. Hyperlipidemia -Continue daily medication regimen with atorvastatin 20 mg daily. Obstructive sleep apnea -Continue CPAP nightly and while napping. Data reviewed: -Postoperative labs reviewed. CBC showing leukocytosis with WBC count of 16.4 and stable hemoglobin of 15.4. BMP showing hyponatremia with sodium of 131 and mild prerenal azotemia with BUN of 21. Magnesium 2.0. -Vital signs reviewed. Blood pressure 122/69, heart rate 81, respiratory rate 18, temp 98.2 F, and SpO2 of 91% on room air. Thank you for allowing us to participate in the care of this pleasant patient. Do not hesitate to contact us with questions. Someone can be reached from the [facility] hospitalist group all hours of the day at [phone] or via [employer] serve. Patient was seen independently by Nurse Pracitioner. This document was prepared using [employer] dictation software. Please allow for errors in oven tender, while rare they do occur. Chaparro Millan NP rendered care for this patient independently, reviewed the findings and plan as documented in the note above and agree with plan. I did not physically speak with or examine the patient on this date. Objective - Vital Signs Vital signs: Vital Signs Temp 98.2 F 11/04/24 01:30 Pulse 60 11/04/24 01:30 Resp 18 11/04/24 01:30 BP 128/67 11/04/24 01:30 Pulse Ox 95 11/04/24 01:30 FiO2 Intake & Output 11/03/24 11/04/24 11/04/24 18:59 06:59 18:59 Intake Total 601 Output Total 150 Balance 451 Weight 87.4 kg 87.4 kg Intake: IV 601 Output: Estimated Blood Loss 150 Other: # Voids 3 - Labs CBC & Chem 7: 11/04/24 08:43 11/04/24 08:43 Labs: Abnormal Lab Results - Last 24 Hours (Table) 11/03/24 Range/Units 20:19 WBC 16.8 H (3.8-10.6) k/uL Hgb 17.3 H (11.4-16.0) gm/dL Hct 52.2 H (34.0-46.0) % MCV 100.7 H (80.0-100.0) fL Neutrophils # 15.7 H (1.3-7.7) k/uL Lymphocytes # 0.6 L (1.0-4.8) k/uL
--- NOTE | 2024-11-04 12:33 | P.DS ---
Providers Date of admission: 11/03/2024 Expected date of discharge: 11/04/24 Attending physician: Anthony Joshi Consults: 11/03/24 18:35 Consult Physician Routine Consulting Provider: Jacob Naidu Consult Reason/Comments: medical management Do you want consulting provider notified?: Yes Primary care physician: Nancy Swenson [facility] Course: Date of admission: 11/03/2024 Date of discharge: 11/04/2024 Admission diagnosis: Right severe glenohumeral joint osteoarthrosis Discharge diagnosis: Same Attending physician: Dr. Joshi Surgical procedures: Right total shoulder arthroplasty Brief history: Patient is a 69-year-old female with a history of right severe glenohumeral joint osteoarthrosis. At this point patient has failed conservative treatment measures and has opted to proceed with a elective right total shoulder arthroplasty. Hospital course: Details of patient's surgery can be found in operative report. Patient tolerated the procedure well and was subsequently transported to orthopedic floor. Patient's orthopeidc and medical care was provided daily. Patient had daily laboratory tests performed for evaluation of overall blood counts. Patient had daily physical therapy to include strengthening range of motion as well as education with walker ambulation. Patient was treated with aspirin for their postoperative DVT prophylaxis during their inpatient stay. Patient was noted to have a relatively uneventful postoperative course. Patient reported satisfactory pain control with oral pain medications by postoperative day 1. Patient showed satisfactory progress with physical therapy. Patient moved steadily through the program and had no difficulty meeting the goals by postoperative day 1. Given patient's otherwise satisfactory course and having met physical therapy goals, plan is to discharge patient [home] on postoperative day 1. Discharge condition/disposition: Patient will be discharged [home] in stable condition. Discharge medications: Instructions are given on resumption of patient's normal daily medications per primary care recommendation, in addition patient will be prescribed Flexeril; [place]; resume aspirin 325 mg daily once home.. Orthopedic Discharge Instructions: 1. Wound care and infection precautions, keep incision dry and covered while showering, no lotions, creams, moisturizers. No soaking, pools, hot tubs. Do not scrub over incision. 2. Non-weight bearing right upper extremity until follow-up. 3. Ice when necessary. Do not exceed 20 minutes per hour with ice pack. 4. Utilize sling to right upper extremity until seen at first follow up appointment. 5. Pain meds and anticoagulants per prescription. 6. Pain medication has potential to cause constipation. Increase oral fluid and fiber intake. Contact primary care provider if you have not had a bowel movement within 48 hours after discharge. 7. No anti-inflammatory medication until discussed at first post operative visit, this including Motrin, Aleve, Mobic, Diclofenac. 8. Follow up in office at 2 weeks postop with Florencio Davies PA-C / Donnie Garrett PA-C 9. Follow up with your primary care doctor 7-10 days after discharge. 10. Contact [facility] with any questions, . Keep incision clean, dry, intact. While showering, cover steri-strips with Saran wrap. Keep steri-strips on until follow-up appointment office in 2 weeks. Assessment: Right severe glenohumeral joint osteoarthrosis Procedures: Right total shoulder arthroplasty Patient Condition at Discharge: Good Plan - Discharge Summary Discharge Rx Participant: No New Discharge Prescriptions: New Cyclobenzaprine [Flexeril] 10 mg PO TID #21 tab HYDROcodone/APAP 7.5-325MG [[place] 7.5-325] 1 tab PO Q6HR PRN #28 tab PRN Reason: Pain No Action dexAMETHasone .ORAL SOLUTION [Decadron Oral Solution] 10 mg PO Q8HR PRN PRN Reason: LICHEN PLANUS Metoprolol Succinate [Toprol XL] 50 mg PO DAILY Aspirin 325 mg PO DAILY Magnesium 250 - 500 mg PO HS PRN PRN Reason: LEG CRAMPS Inulin/Chromium Picolinate [Fiber Gummies Chew] 1 each PO HS PRN PRN Reason: Constipation Omeprazole 20 mg PO DAILY Acetaminophen [Tylenol Extra Strength] 1,000 mg PO Q6H PRN PRN Reason: Pain Sennosides/Docusate Sodium [Senna-S 8.6-50 mg Tablet] 1 each PO DAILY PRN #30 tablet PRN Reason: Constipation Cyclobenzaprine [Flexeril] 10 mg PO TID PRN PRN Reason: Spasms Cetirizine HCl [Zyrtec] 10 mg PO DAILY Melatonin 6 mg PO HS HYDROcodone/APAP 7.5-325MG [[place] 7.5] 1 each PO Q6HR PRN #28 tab PRN Reason: Pain Rosuvastatin Calcium 10 mg PO DAILY Spironolactone 100 mg PO DAILY Discharge Medication List Aspirin 325 mg PO DAILY 08/11/20 [History] Magnesium 250 - 500 mg PO HS PRN 08/11/20 [History] Metoprolol Succinate [Toprol XL] 50 mg PO DAILY 08/11/20 [History] dexAMETHasone .ORAL SOLUTION [Decadron Oral Solution] 10 mg PO Q8HR PRN 08/11/20 [History] Inulin/Chromium Picolinate [Fiber Gummies Chew] 1 each PO HS PRN 09/05/20 [History] Omeprazole 20 mg PO DAILY 08/17/22 [History] Acetaminophen [Tylenol Extra Strength] 1,000 mg PO Q6H PRN 08/21/22 [History] HYDROcodone/APAP 7.5-325MG [[place] 7.5] 1 each PO Q6HR PRN #28 tab 08/23/22 [Rx] Sennosides/Docusate Sodium [Senna-S 8.6-50 mg Tablet] 1 each PO DAILY PRN #30 tablet 08/23/22 [Rx] Cetirizine HCl [Zyrtec] 10 mg PO DAILY 10/27/24 [History] Cyclobenzaprine [Flexeril] 10 mg PO TID PRN 10/27/24 [History] Melatonin 6 mg PO HS 10/27/24 [History] Rosuvastatin Calcium 10 mg PO DAILY 10/27/24 [History] Spironolactone 100 mg PO DAILY 10/27/24 [History] Cyclobenzaprine [Flexeril] 10 mg PO TID #21 tab 11/04/24 [Rx] HYDROcodone/APAP 7.5-325MG [[place] 7.5-325] 1 tab PO Q6HR PRN #28 tab 11/04/24 [Rx] Follow up Appointment(s)/Referral(s): Donnie Garrett PAC [PHYSICIAN MEDICAL MICROBIOLOGIST] - 11/18/24 9:50 am Patient Instructions/Handouts: Shoulder Arthroplasty (GEN) Activity/Diet/Wound Care/Special Instructions: Orthopedic Discharge Instructions: 1. Wound care and infection precautions, keep incision dry and covered while showering, no lotions, creams, moisturizers. No soaking, pools, hot tubs. Do not scrub over incision. 2. Non-weight bearing right upper extremity until follow-up. 3. Ice when necessary. Do not exceed 20 minutes per hour with ice pack. 4. Utilize sling to right upper extremity until seen at first follow up appointment. 5. Pain meds and anticoagulants per prescription. 6. Pain medication has potential to cause constipation. Increase oral fluid and fiber intake. Contact primary care provider if you have not had a bowel movement within 48 hours after discharge. 7. No anti-inflammatory medication until discussed at first post operative visit, this including Motrin, Aleve, Mobic, Diclofenac. 8. Follow up in office at 2 weeks postop with Florencio Davies PA-C / Donnie Garrett PA-C 9. Follow up with your primary care doctor 7-10 days after discharge. 10. Contact [facility] with any questions, . Keep incision clean, dry, intact. While showering, cover steri-strips with Saran wrap. Keep steri-strips on until follow-up appointment office in 2 weeks. Discharge Disposition: HOME SELF-CARE
--- NOTE | 2024-11-04 12:35 | P.PN ---
Subjective Progress Note Date: 11/04/24 Principal diagnosis: Right severe glenohumeral joint osteoarthrosis Patient was seen at bedside this morning lying in semirecumbent position with sling and dressing present to right upper extremity. Patient says she has been doing well this morning and pain is controlled with oral medication. Patient says she has been up walking around the room under her own power and has uri nated since surgery yesterday without issue. Patient states no bowel movement yet, however, patient states she has been passing gas. Patient denies any other orthopedic complaints at this time. Objective - Vital Signs Vital signs: Vital Signs Temp 98.2 F 11/04/24 07:22 Pulse 81 11/04/24 07:22 Resp 18 11/04/24 07:22 BP 122/69 11/04/24 07:22 Pulse Ox 92 L 11/04/24 09:41 FiO2 Intake & Output 11/03/24 11/04/24 11/04/24 18:59 06:59 18:59 Intake Total 601 Output Total 150 Balance 451 Weight 87.4 kg 87.4 kg Intake: IV 601 Output: Estimated Blood Loss 150 Other: Voiding Method Toilet # Voids 3 - Exam Right shoulder: Incision is clean, dry, and intact. The bulky dressing is in good condition. There is minimal soft tissue swelling and ecchymosis surrounding the medial and lateral aspects of the incision. Calf is soft, no tenderness with palpation. Plantar flexion, dorsiflexion, EHL, FHL are intact. Sensory exam to light touch throughout the extremity is intact, dorsal pedis pulses 2+. - Labs CBC & Chem 7: 11/04/24 08:43 11/04/24 08:43 Labs: Abnormal Lab Results - Last 24 Hours (Table) 11/03/24 11/04/24 11/04/24 Range/Units 20:19 08:43 08:43 WBC 16.8 H 16.4 H (3.8-10.6) k/uL Hgb 17.3 H (11.4-16.0) gm/dL Hct 52.2 H 47.0 H (34.0-46.0) % MCV 100.7 H (80.0-100.0) fL Neutrophils # 15.7 H (1.3-7.7) k/uL Lymphocytes # 0.6 L (1.0-4.8) k/uL Sodium 131 L (137-145) mmol/L BUN 21 H (7-17) mg/dL Glucose 160 H (74-99) mg/dL Assessment and Plan Assessment: 1. Right severe glenohumeral joint osteoarthrosis -Postop day 1 status post right total shoulder arthroplasty Plan: 1. Right severe glenohumeral joint osteoarthrosis -right total shoulder arthroplasty form yesterday, 11/03/2024. Patient stable bedside this morning with dressing and sling present to right upper extremity. Discharge home today 2. Appreciate medical management 3. Pain management -Flexeril; [place]; Tylenol 4. DVT prophylaxis -aspirin 325 mg daily 5. GI prophylaxis -senna 6. PT/OT -nonweightbearing right upper extremity. Maintain right upper extremity in sling 7. Encourage incentive spirometer use 8. Discharge planning -discharge home today Time with Patient: Less than 30
[2024-11-04 14:07] VITALS: BP 107/64; PULSE 88
== END 2024-11-04 16:26 | disposition home or self-care (01) ==
LOC: OR 10:36 → 4SSUR 15:19 → OR 11-04 16:26
PROVIDERS: ATTEND Orthopaedic Surgery
DX: M19.011 Primary osteoarthritis, right shoulder (principal); E78.5 Hyperlipidemia, unspecified; I10 Essential (primary) hypertension; G47.33 Obstructive sleep apnea (adult) (pediatric); K21.9 Gastro-esophageal reflux disease without esophagitis; M79.7 Fibromyalgia; L43.9 Lichen planus, unspecified; Z90.710 Acquired absence of both cervix and uterus; Z82.61 Family history of arthritis; Z82.49 Family history of ischemic heart disease and other diseases of the circulatory system; Z83.3 Family history of diabetes mellitus; Z88.8 Allergy status to other drugs, medicaments and biological substances; Z88.2 Allergy status to sulfonamides; Z88.1 Allergy status to other antibiotic agents; Z91.040 Latex allergy status; Z79.82 Long term (current) use of aspirin; Z79.899 Other long term (current) drug therapy
CPT/HCPCS: 85025; 73020; 23472; J2250; J3370; J1100; J0690 ×2; J2405; J1171; 64415; 80048; 83735; 85027; 94760

== ENCOUNTER → 2025-04-15 | Outpatient (CLI) | payer MEDICARE | END | disposition home or self-care (01) | LOC: LABWHC1 14:44 | PROVIDERS: ATTEND Internal Medicine Endocrinology, Diabetes & Metabolism | DX: E26.09 Other primary hyperaldosteronism (principal) | CPT/HCPCS: 36415; 80053 ==

== ENCOUNTER → 2025-04-16 | Outpatient (CLI) | payer MEDICARE ==
[2025-04-16 18:56] LABS: ALT 19 U/L (8-44); AST 22 U/L (13-35); Albumin 4.4 g/dL (3.8-4.9); Alkaline Phosphatase 99 U/L (41-126); BUN/Creat Ratio 19.44 Ratio (12.00-20.00); Blood Urea Nitrogen 17.5 mg/dL (9.0-27.0); Calcium 9.9 mg/dL (8.7-10.3); Carbon Dioxide 25.1 mmol/L (21.6-31.8); Chloride 101 mmol/L (96-109); Globulin 2.1 g/dL (1.6-3.3); Glucose 78 mg/dL (70-110); Potassium 4.1 mmol/L (3.5-5.5); Sodium 139 mmol/L (135-145); Total Bilirubin 0.6 mg/dL (0.3-1.2); Total Protein 6.5 g/dL (6.2-8.2)
== END | disposition home or self-care (01) ==
LOC: LABWHC1 12:57
PROVIDERS: ATTEND Internal Medicine Endocrinology, Diabetes & Metabolism
DX: E26.09 Other primary hyperaldosteronism (principal)
CPT/HCPCS: 36415; 80053